=== PATIENT | male | born 1950 | race Caucasian/White ===

== ENCOUNTER 2017-11-13 20:47 | Inpatient (IN) | payer OTHER ==
[2017-11-13 21:12] VITALS: BMI 30.4
[2017-11-13] MEDS ORDERED: PANTOPRAZOLE 40 MG INJ IVP ONE (21:21)
[2017-11-13] MEDS: MORPHINE 4 MG/ML SYR IV PRN (21:49)
[2017-11-13] MEDS: SODIUM CHLORIDE 0.9% 10ML INJ IV PRN (21:49)
[2017-11-13] MEDS: NACHLORIDE 0.45% 1,000 ML IV SCH (21:58)
[2017-11-13] MEDS ORDERED: CIPROFLOXACIN 400mg IV 400 MG/200 ML BAG IV ONE (22:00)
[2017-11-14] MEDS: METRONIDAZOLE 500mg IVPB 500 MG/100 ML BAG IV SCH ×3 (00:25→16:56)
[2017-11-14] MEDS: MORPHINE 4 MG/ML SYR IV PRN ×2 (02:42→22:23)
[2017-11-14] MEDS: ONDANSETRON 4 MG/2 ML VIAL IV PRN ×2 (07:02→12:51)
[2017-11-14] MEDS: NACHLORIDE 0.45% 1,000 ML IV SCH ×4 (07:02→22:00)
[2017-11-14] MEDS ORDERED: ONDANSETRON 4 MG/2 ML VIAL ONE (07:03)
[2017-11-14 07:41] LABS: Urine Appearance CLEAR; Urine Bilirubin NEGATIVE (NEG); Urine Blood NEGATIVE (NEG); Urine Color YELLOW; Urine Glucose NEGATIVE (NEG); Urine Protein TRACE (NEG); Urine Specific Gravity >=1.030 (1.005-1.030); Urine Urobilinogen 0.2 mg/dL (0.2-1.0)
[2017-11-14 07:42] LABS: Urine Microscopic Reflex ORDER UMIC
[2017-11-14 07:45] LABS: Absolute Lymphocytes (CBC) 1.1 K/uL (0.7-4.9); Absolute Monocytes 0.8 K/uL (0.1-1.3); Absolute Neutrophil 7.9 K/uL (1.8-8.0); Basophils % 0.4 % (0-1.3); Eosinophils % 0.5 % (0-4.4); Hematocrit 35.7 % (39.6-49.0); Lymphocytes % 11.5 % (15.3-44.8); MCH 29.9 pg (27.0-35.0); MCV 85.8 fL (80-100); MPV 7.9 fL (7.6-11.3); Monocytes % 8.4 % (3.3-12.3); RBC Red Blood Cell Count 4.16 M/uL (4.33-5.43)
[2017-11-14 08:02] LABS: Urine Bacteria NONE SEEN /HPF (NONE SEEN); Urine Culture Reflex Order NOT NEEDED; Urine Mucus MOD /HPF (NONE SEEN); Urine RBC NONE SEEN /HPF (NONE SEEN)
[2017-11-14] MEDS: PANTOPRAZOLE 40 MG INJ IVP SCH (09:57)
[2017-11-14] MEDS: SODIUM CHLORIDE 0.9% 10ML INJ IV PRN (09:57)
[2017-11-14] MEDS: CIPROFLOXACIN 400mg IV 400 MG/200 ML BAG IV SCH ×2 (09:58→20:15)
--- NOTE | 2017-11-14 14:01 | CON ---
Date of Consultation: 11/14/2017 Brief History Of Present Illness: The patient is a 67-year-old male, known to me from previous histo ry. I saw him approximately 2 years ago in the hospital for emergent procedure. His history was sig nificant for prostate cancer status post radiation at [facility] when he developed abdominal pain. He came to the hospital and at that time Dr. Cleaning performed a colonoscopy and was concerned of perfor ation at that time. He developed an acute rigid abdomen and he had an emergency exploration with tra nsverse colostomy and mucous fistula creation at that time. He did well postoperatively and he ultim ately had a good function colostomy. I performed a colonoscopy through the proximal distal aspects o f his colon and after examining the entire colon found that he had no evidence of malignancy at that time. He simply had radiation effect at that time with inflammation. Ultimately, he had a colostomy takedown in 2016 and did well with that. He has been in his normal state of health, doing well, eat ing well up until last year in a part of 2017. He had several problems with respect to emotional iss ues. His , one of his children and his best friend . As such , he began heavy drinking greater than 12 pack per day since 2017 up until recently. During this cou rse, he developed occasional episodes of abdominal pain and decreased bowel function. Two weeks ago, he noted that with his increased drinking, he had firmer, harder stools that would only happen every 2 to 3 days, associated with bloating and nausea. This sort of came to ahead by his description whe n he went to [facility] ultimately with abdominal pain, bloating and some nausea with significant abdominal pain, which he has not experienced before. He had decreased bowel function as well by his description and not had a good bowel function for at least 2 to 3 days prior to this. He ultimately was transferred from [facility] after workup revealed a possible pseudo-obstruction by CT scan o f his colon with a tapering effect. As such he was transferred here and accepted by Dr. Prajapati. David haas, when I speak to the patient, he describes the above story and corroborates that he currently h as no abdominal pain. He did have 1 episode of nausea and vomiting yesterday after morphine injectio n, which he says he has experienced before. It was minimal amount of material vomited. He has had a bowel movement and is passing gas. He now states his abdominal pain is significantly better. His d istention is almost completely resolved and he is very hungry at this time. Past Medical History: Significant for prostate cancer. Also includes hypertension and GERD. Past Surgical History: He had transverse colostomy formation with diversion. He had multiple colono scopies as described and he had a colostomy takedown as described. Also includes robotic prostatecto my. Social History: He admits to heavy drinking of beer at this time, greater than 12 pack per day as de scribed above. He quit smoking however, but does have a significant smoking history. Denies any rec reational drug use. He is as described above and currently retired. Family History: Reviewed and noncontributory. Allergies: NO KNOWN DRUG ALLERGIES. Home Medications: Include lisinopril and Prilosec only. Physical Examination: Vital Signs: At the time of my examination, his BMI is 30.4. General: He is awake, alert, and oriented. Psychiatric: He is appropriate and conversive. Vital Signs: Blood pressure 145/83, pulse rate 76, respiratory rate 20, temperature 98.5. HEENT: Normocephalic. His sclerae are anicteric. His mucous membranes are moist. His oropharynx i s clear. Neck: Supple. No JVD. Chest: Normal expansion excursion. Cardiovascular: Regular rate and rhythm. Pulmonary: Clear to auscultation bilaterally. Abdomen: Soft, nontender, nondistended. Well-healed surgical scars are evident. No hernias appreci ated. Extremities: No clubbing, cyanosis, or edema. Laboratory Data: He had a laboratory exam here which revealed a white blood count 9.9, hemoglobin 12 .4, hematocrit 35.7, platelet count is 305, neutrophils 79%. He had a urinalysis performed as well w hich was essentially negative. He had a CT scan performed of the abdomen and pelvis without contrast at [facility], which was officially read as large volume of mixed stool and gas-distended colon with gradual tapering to normal caliber in the distal sigmoid. The bowel gas pattern is most consist ent with chronic pseudo-obstruction given the lack of clear transition. There was a small sliding hi atal hernia with mild esophageal mucosal enhancement, nonspecific, can be seen with reflux or abscess and normal appendix was identified. There were no transition points noted as well. His BNP was per formed yesterday at [facility] showed sodium 140, potassium 4.6, chloride 105, carbon dioxide 23, BUN 14. His glucose is 92, creatinine 1.1, calcium 8.9. His total bilirubin is 0.7. His ALK 79, A LT is 12, AST 40, lipase is 186. PTT was 29, INR 1.0, PT 13.7. Assessment And Plan: This is a 67-year-old male, who comes in with likely pseudo-obstruction of the colon, possibly contributed to by his heavy alcohol use as of late and poor nutrition. 1.I recommend IV fluid hydration. 2.Electrolyte management. 3.Alcohol cessation discussed and dietary modification discussed. 4.We will start clear liquid diet today and reexamine. 5.Serial abdominal exams. 6.The patient will need outpatient colonoscopy once again after this episode resolves. 7.Continue medical management per Dr. Prajapati. Thank you for this interesting consult. CITLALLI/ISIDRO Voice ID: [id number] Report ID: [id number]
[2017-11-14] MEDS: MAGNES/ALUMIN/SIMET 30ML UCUP PO PRN (15:37)
[2017-11-15] MEDS: METRONIDAZOLE 500mg IVPB 500 MG/100 ML BAG IV SCH ×3 (00:51→17:23)
[2017-11-15 04:16] LABS: Absolute Lymphocytes (CBC) 1.5 K/uL (0.7-4.9); Absolute Neutrophil 7.8 K/uL (1.8-8.0); Basophils % 0.5 % (0-1.3); Eosinophils % 1.2 % (0-4.4); Hematocrit 33.9 % (39.6-49.0); Lymphocytes % 14.1 % (15.3-44.8); MCH 30.3 pg (27.0-35.0); MCV 86.9 fL (80-100); MPV 7.9 fL (7.6-11.3); Monocytes % 9.7 % (3.3-12.3)
[2017-11-15 04:22] LABS: Magnesium 2.4 mg/dL (1.8-2.4); Phosphorus 2.5 mg/dL (2.5-4.9); Potassium 3.9 mmol/L (3.5-5.1)
[2017-11-15] MEDS: NACHLORIDE 0.45% 1,000 ML IV SCH ×3 (05:26→19:57)
[2017-11-15] MEDS: MAGNES/ALUMIN/SIMET 30ML UCUP PO PRN ×2 (09:01→21:10)
[2017-11-15] MEDS: ONDANSETRON 4 MG/2 ML VIAL IV PRN ×2 (09:02→21:10)
[2017-11-15] MEDS: SODIUM CHLORIDE 0.9% 10ML INJ IV PRN (09:05)
[2017-11-15] MEDS: PANTOPRAZOLE 40 MG INJ IVP SCH (09:05)
[2017-11-15] MEDS: LISINOPRIL 10 MG TAB PO SCH (09:13)
[2017-11-15] MEDS ORDERED: BISACODYL 10 MG RECTAL SUPP PR PRN (09:32)
--- NOTE | 2017-11-15 09:44 | P.PN ---
Subjective Date of Service: 11/15/17 Subjective: Improving (patient states he feels better, passing gas, having 3 BMs ) Physical Examination - Vital Signs Temperature: 98.3 F Blood Pressure: 150/83 Pulse: 76 Respirations: 18 Pulse Ox (%): 95 - Physical Exam General: Alert, In no apparent distress, Cooperative Gastrointestinal: Soft and benign, No ascites, No tenderness, No masses, No rebound, No guarding - Studies Laboratory Data (last 24 hrs) 11/15/17 03:43: Sodium 139, Potassium 3.9, BUN 11, Creatinine 0.90, Glucose 102 , Phosphorus 2.5, Magnesium 2.4 11/15/17 03:43: WBC 10.5, Hgb 11.8 L, Hct 33.9 L, Plt Count 277 Assessment And Plan - Current Problems (Diagnosis) (1) Colonic pseudoobstruction Onset Date: 11/14/17 Current Visit: Yes Status: Acute Plan: Patient continues to improve - having bowel movements - pain is almost completely resolved - only soreness remains - still has mild distention, but improved - dulcolax, full liquid diet
[2017-11-15] MEDS: CIPROFLOXACIN 400mg IV 400 MG/200 ML BAG IV SCH ×2 (10:15→20:00)
[2017-11-15] MEDS ORDERED: MAGNESIUM CITRATE 300 ML BOT PO ONE (13:00)
[2017-11-15] MEDS: MORPHINE 4 MG/ML SYR IV PRN ×2 (16:30→23:05)
--- NOTE | 2017-11-15 20:21 | HP ---
Date of Admission: 11/14/2017 Chief Complaint: Abdominal distention. History Of Present Illness: A 67-year-old male was brought to [facility] with abdominal pain and distention. He had a workup done including CAT scan. He was found to have distention of t he bowels including colon with a possibility of bowel obstruction. The patient is transferred to [facility]. The patient denied any history of vomiting. However, he was having small amount of loose stools. The patient now claims that he has seen Dr. Scott for this reason, and he was given probiotics. Past Medical History: The patient has history of hypotension. He had surgery for pseudo-colonic obs truction by Dr. Ashley. Family History: Positive for hypertension and cancer. Past Surgical History: Includes history of colostomy, prostate surgery for prostate cancer, colectom y and reversal of colostomy. Review of Systems: The patient denied any fever, chills, rigors. Physical Examination: General: Reveals 67-year-old male, in [id number] pain. Vital Signs: Normal. HEENT: No icterus. Neck: Supple. JVD negative. Chest: Clear. Heart: Regular. Abdomen: Diffusely distended with tympanic note. No palpable mass. Extremities: No edema. Laboratory Data: CBC normal. CAT scan as per the ER physician showed distention of the bowel, parti cularly colon, without a transition point. Assessment: 1.Rule out intermittent obstruction. 2.Hypertension. 3.Status post colectomy, colostomy, and reversal of colostomy. Plan: The patient has been seen by Dr. Ashley. He does not think the patient has any bowel obstruc tion. However, since the patient tells me that he has seen Dr. Scott, a consultation will be done a s he has seen for the same problem recently. IGNACIO/ISIDRO Voice ID: [id number]
[2017-11-16] MEDS: METRONIDAZOLE 500mg IVPB 500 MG/100 ML BAG IV SCH ×2 (00:16→10:08)
[2017-11-16] MEDS: MAGNES/ALUMIN/SIMET 30ML UCUP PO PRN (02:21)
[2017-11-16] MEDS: ONDANSETRON 4 MG/2 ML VIAL IV PRN (02:29)
[2017-11-16] MEDS: NACHLORIDE 0.45% 1,000 ML IV SCH (06:30)
--- NOTE | 2017-11-16 08:23 | RAD REPORT ---
EXAM DESCRIPTION: RAD - Abdomen 1 View (KUB) - 11/16/2017 6:49 am CLINICAL HISTORY: Abdomen pain. FINDINGS: Portions of the colon are upper limits normal caliber. Wall of the left colon appears mild ly thickened which may indicate inflammation. Air is present within nondilated small bowel in a nonspecific fashion. Surgical clips are present within the pelvis
--- NOTE | 2017-11-16 08:50 | P.PN ---
Subjective Date of Service: 11/16/17 Subjective: Improving (Patient states he feels much better, had 3 large BMs with gas. Very hungry, all pain gone, distention almost completely resolved.) Physical Examination - Vital Signs Temperature: 97.7 F Blood Pressure: 140/83 Pulse: 67 Respirations: 18 Pulse Ox (%): 95 - Physical Exam General: Alert, In no apparent distress, Cooperative HEENT: Mucous membr. moist/pink Gastrointestinal: Soft and benign (minimal distention, slight tympany consistent with gas), No ascites, No tenderness, No masses, No rebound, No guarding Assessment And Plan - Current Problems (Diagnosis) (1) Colonic pseudoobstruction Onset Date: 11/14/17 Current Visit: Yes Status: Acute Plan: Patient continues to improve - having bowel movements and passing gas - pain is resolved - still has mild distention, but improved - dulcolax, low residue diet
[2017-11-16] MEDS: CIPROFLOXACIN 400mg IV 400 MG/200 ML BAG IV SCH (10:08)
[2017-11-16] MEDS: LISINOPRIL 10 MG TAB PO SCH (10:09)
[2017-11-16] MEDS: PANTOPRAZOLE 40 MG INJ IVP SCH (10:09)
[2017-11-16] MEDS: SODIUM CHLORIDE 0.9% 10ML INJ IV PRN (10:11)
[2017-11-16 10:59] VITALS: O2SAT 96
[2017-11-16 12:26] VITALS: TEMP 99
[2017-11-16 13:02] VITALS: BP 104/59
== END 2017-11-16 13:27 | disposition home or self-care (01) | DRG 390 ==
LOC: 4TH 20:47
PROVIDERS: ADMIT Internal Medicine; ATTEND Internal Medicine
DX: K56.699 Other intestinal obstruction unspecified as to partial versus complete obstruction (principal); Z85.46 Personal history of malignant neoplasm of prostate; I10 Essential (primary) hypertension; K21.9 Gastro-esophageal reflux disease without esophagitis; K44.9 Diaphragmatic hernia without obstruction or gangrene; Z87.891 Personal history of nicotine dependence
CPT/HCPCS: 36415; 74018; 80048; 81003; 81015; 83735; 84100; 85025; C9113; J0744; J2405

== ENCOUNTER 2017-11-20 11:21 | Inpatient (IN) | payer OTHER ==
[2017-11-20] MEDS ORDERED: ONDANSETRON 4 MG/2 ML VIAL ONE (11:42)
[2017-11-20] MEDS ORDERED: MORPHINE 4 MG/ML SYR ONE (11:42)
[2017-11-20 12:10] LABS: Absolute Lymphocytes (CBC) 1.2 K/uL (0.7-4.9); Absolute Monocytes 1.1 K/uL (0.1-1.3); Absolute Neutrophil 11.6 K/uL (1.8-8.0); Basophils % 0.5 % (0-1.3); Eosinophils % 0.6 % (0-4.4); Hematocrit 44.6 % (39.6-49.0); Lymphocytes % 8.8 % (15.3-44.8); MCH 29.5 pg (27.0-35.0); MCV 87.3 fL (80-100); MPV 7.8 fL (7.6-11.3); Monocytes % 7.5 % (3.3-12.3); RBC Red Blood Cell Count 5.11 M/uL (4.33-5.43)
[2017-11-20 12:13] LABS: Protime INR 1.17
[2017-11-20 12:28] LABS: ALT/SGPT 33 U/L (12-78); AST/SGOT 25 U/L (15-37); Alkaline Phosphatase 74 U/L (45-117); BUN Blood Urea Nitrogen 10 mg/dL (7-18); Bicarbonate 29 mmol/L (21-32); Bilirubin Direct 0.2 mg/dL (0-0.2); Bilirubin Total 0.7 mg/dL (0.2-1.0); CKMB Creatine Kinase MB 1.5 ng/mL (0.3-3.6); Creatine Phosphokinase 102 U/L (39-308); Glucose Level 110 mg/dL (74-106); Lipase 277 U/L (73-393); Potassium 3.7 mmol/L (3.5-5.1); Protein, Total 8.7 g/dL (6.4-8.2); Sodium Level 136 mmol/L (136-145); Troponin (Emerg Dept Use Only) < 0.02 ng/mL (0.0-0.045)
[2017-11-20 12:28] LABS: Arterial Blood Carboxyhemoglob 0.9 % (0-1.5); Blood Gas Oxyhemoglobin 89.6 % (94-97); Blood O2 Saturation 91.1 % (92-98.5)
[2017-11-20] MEDS ORDERED: PANTOPRAZOLE 40 MG INJ ONE (12:35)
[2017-11-20] MEDS ORDERED: CEFTRIAXONE/SWI 1gm 1 GM/10 ML SYR ONE (12:35)
[2017-11-20] MEDS ORDERED: NA CHLORIDE 0.9% 500 ML ONE (12:54)
[2017-11-20] MEDS ORDERED: CEFEPIME 1 GM/100 ML BAG IV ONE (12:55)
[2017-11-20] MEDS ORDERED: PANTOPRAZOLE INJ 80 MG in NA CHLORIDE 0.9% 250 ML IV SCH (13:00)
[2017-11-20] MEDS ORDERED: PROMETHAZINE 25 MG/ML VIAL ONE (13:09)
--- NOTE | 2017-11-20 13:26 | RAD REPORT ---
EXAM DESCRIPTION: RAD - Chest Single View - 11/20/2017 12:41 pm CLINICAL HISTORY: DYSPNEA Chest pain. COMPARISON: Chest Single View dated 10/28/2017; Chest Single View dated 05/19/2017; Chest Single View dated 02/05/2017; Chest Single View dated 02/04/2017Abdomen 1 View (KUB) dated 11/16/2017; Chest Pa A nd Lat (2 Views) dated 08/27/2015; Chest Single View dated 07/06/2015; Chest Single View dated 6 FINDINGS: Portable technique limits examination quality. Linear opacities in left lung base noted, likely atelectasis. The heart is normal in size. No displac ed fractures. IMPRESSION: Left lung base atelectasis.
--- NOTE | 2017-11-20 13:44 | RAD REPORT ---
EXAM DESCRIPTION: CTAbdomen Pelvis W Contrast - 11/20/2017 1:24 pm CLINICAL HISTORY: Abdominal pain. ABD PAIN COMPARISON: Abdomen Pelvis W Contrast dated 08/27/2015; Abdomen Pelvis W Contrast dated 07/04/2015 ; Abdomen 1 View (KUB) dated 11/16/2017 TECHNIQUE: Biphasic CT imaging of the abdomen and pelvis was performed with 100 ml non-ionic IV cont rast. All CT scans are performed using dose optimization technique as appropriate and may include automated exposure control or mA/KV adjustment according to patient size. FINDINGS: The inferior lung romo are mildly emphysematous but clear.Small hiatal hernia is seen wi th distention of the stomach. The liver demonstrates no focal mass or biliary dilatation. The spleen, pancreas, adrenal glands and kidneys are within normal limits. Small cyst is present in the inferior posterior left kidney. Marked distention of the colon is present as well as the ileum. Trace free fluid is seen particularly along the right pericolic gutter. There is the regular thickening of 7 cm length of the sigmoid colo n in the pelvis seen. The lumen of the colon is quite narrowed. There is mild surrounding inflammator y changes. This area of the sigmoid colon is likely the cause of the significant proximal colonic ob struction. The appendix is not identified as a discrete structure, however, no secondary findings of appendicitis are identified. No evidence of significant lymphadenopathy. Aortic atherosclerosis. No free air or abscess is present. Moderate lumbosacral degenerative changes. IMPRESSION: A large bowel obstruction is present caused by a 7 cm segment of the sigmoid colon which is quite thickened and narrowed. Etiologies for this finding would include diverticulitis or maligna ncy. Consider colonoscopy followup assessment.
[2017-11-20 13:55] LABS: Bilirubin Direct 0.2 mg/dL (0-0.2); C-Reactive Protein 5.53 mg/L (<3.00); Magnesium 2.5 mg/dL (1.8-2.4)
[2017-11-20] MEDS ORDERED: VANCOMYCIN 1.5 GM in NA CHLORIDE 0.9% 500 ML IVPB SCH (14:00)
--- NOTE | 2017-11-20 14:18 | ER ---
Nurse's Notes [facility] Name: Ben Ceballos Age: 67 yrs Sex: Male : 1950 Arrival Date: 11/20/2017 Time: 11:22 Bed 2 Private MD: Diagnosis: Other intestinal obstruction;Diverticular disease of intestine Presentation: 11/20 11:22 Presenting complaint: EMS states: Pt was dc on with pseudo-blockage. C/o jl7 worseing abd pain and distention, Pt vomited on arrival. Transition of care: patient was not received from another setting of care. Onset of symptoms was November 07, 2017. Risk Assessment: Do you want to hurt yourself or someone else? Patient reports no desire to harm self or others. Initial Sepsis Screen: Does the patient meet any 2 criteria? No. Patient's initial sepsis screen is negative. Does the patient have a suspected source of infection? No. Patient's initial sepsis screen is negative. Care prior to arrival: None. 11:22 Method Of Arrival: EMS: [facility] jl7 11:22 Acuity: XIN 3 jl7 Triage Assessment: 11:24 General: Appears uncomfortable, ill, Behavior is cooperative. Pain: Complains of pain jl7 in right lower quadrant and left lower quadrant Pain currently is 8 out of 10 on a pain scale. Neuro: Level of Consciousness is awake, alert, obeys commands, Oriented to person, place, time, situation. Cardiovascular: Patient's skin is warm and dry. Respiratory: Airway is patent Respiratory effort is even, unlabored, Respiratory pattern is regular, symmetrical. GI: Abdomen is round distended, Pt is actively vomiting Abdomen is tender to palpation in left upper quadrant and left lower quadrant. Derm: Skin is dry, Skin is pale, Skin temperature is warm. Historical: - Allergies: 11:24 No Known Allergies; jl7 - Immunization history:: Adult Immunizations up to date. - Social history:: Smoking status: Patient/guardian denies using tobacco, Patient/guardian denies using alcohol, street drugs, The patient lives with family. - Ebola Screening: : No symptoms or risks identified at this time. - Family history:: not pertinent. Screenin:30 Abuse screen: Denies threats or abuse. Denies injuries from another. Nutritional jl7 screening: No deficits noted. Tuberculosis screening: No symptoms or risk factors identified. Fall Risk IV access (20 points). Total Maharaj Fall Scale indicates No Risk (0-24 pts). Assessment: 11:30 Reassessment: See triage assessment. jl7 13:30 Reassessment: Pt reports "I can't lay down for the CT, I feel like I'm going to vomit jl7 everywhere." Provider notified, see [facility] for orders. 15:00 Reassessment: No changes from previously documented assessment. Patient and/or family jl7 updated on plan of care and expected duration. Pain level reassessed. Patient is alert, oriented x 3, equal unlabored respirations, skin warm/dry/pink. 16:00 Reassessment: Patient and/or family updated on plan of care and expected duration. Pain jl7 level reassessed. Patient is alert, oriented x 3, equal unlabored respirations, skin warm/dry/pink. 17:00 Reassessment: Patient appears in no apparent distress at this time. Patient and/or jl7 family updated on plan of care and expected duration. Pain level reassessed. Patient is alert, oriented x 3, equal unlabored respirations, skin warm/dry/pink. Vital Signs: 11:24 BP 121 / 94; Pulse 97; Resp 18; Temp 98.1(O); Pulse Ox 98% on R/A; Weight 86.18 kg (R); jl7 Pain 8/10; 13:00 BP 130 / 88; Pulse 95; Resp 16 S; Pulse Ox 98% on R/A; jl7 14:00 BP 128 / 89; Pulse 94; Resp 18 S; Pulse Ox 99% on R/A; jl7 15:15 BP 126 / 87; Pulse 90; Resp 16 S; Pulse Ox 100% on R/A; jl7 16:45 BP 122 / 88; Pulse 87; Resp 16 S; Pulse Ox 100% on R/A; jl7 ED Course: 11:22 Patient arrived in ED. jl7 11:24 Triage completed. jl7 11:24 Arm band placed on right wrist. jl7 11:30 Patient has correct armband on for positive identification. Placed in gown. Bed in low jl7 position. Call light in reach. Side rails up X 1. clinical molecular geneticist on. Pulse ox on. NIBP on. 11:30 Warm blanket given. jl7 11:36 Alzahri, Mohammad, MD is Attending Physician. ma2 11:40 Initial lab(s) drawn, by ny, sent to lab. Inserted saline lock: 20 gauge in right jb1 antecubital area, using aseptic technique. Blood collected. 11:53 IV discontinued, intact, bleeding controlled. jb1 12:04 Helio Anna RN is Primary Nurse. jl7 12:42 Chest Single View XRAY In Process Unspecified. EDMS 13:24 CT Abd/Pelvis - W/Contrast In Process Unspecified. EDMS 13:45 NGT: inserted 12 Fr. via left nare. verified placement of air over stomach, verified jl7 return of gastric contents, to intermittent suction. Returned gastric contents. Patient tolerated well. 14:15 Isreal Prajapati MD is Hospitalizing Provider. ma2 14:50 Inserted saline lock: 18 gauge in left forearm, using aseptic technique. ,using aseptic jl7 technique. Inserted by RADHA Arriaga via US. 15:57 Inserted saline lock: 22 gauge in right forearm, using aseptic technique. iw 16:14 No provider procedures requiring assistance completed. jl7 17:30 Patient admitted, IV remains in place. intact, No redness/swelling at site. jl7 Administered Medications: 11:52 Drug: Zofran 4 mg Route: IVP; Site: left wrist; jl7 12:06 Follow up: Response: No adverse reaction jl7 11:55 Drug: morphine 4 mg Route: IVP; Site: left wrist; jl7 12:06 Follow up: Response: No adverse reaction; Pain is decreased jl7 12:35 Drug: Pantoprazole 80 mg Route: IVP; Site: left wrist; jl7 15:24 Follow up: Response: No adverse reaction jl7 12:43 Drug: Rocephin 1 grams Route: IV; Rate: calculated rate; Site: left wrist; jl7 12:46 Follow up: Response: No adverse reaction; IV Status: Completed infusion jl7 13:15 Drug: Phenergan 25 mg Route: IVP; Site: left wrist; jl7 15:19 Follow up: Response: No adverse reaction; Nausea is decreased jl7 13:30 Drug: NS 0.9% 500 ml Route: IV; Rate: 1 bolus; Site: left wrist; jl7 14:40 Follow up: IV Status: Completed infusion jl7 14:00 Drug: Pantoprazole 8 mg/hr Route: IV; Rate: 25 ml/hr; Site: left wrist; jl7 14:58 Follow up: IV Pause: 11/20/2017 14:58; IV Pause Reason: Limited IV access/Medication jl7 interaction 16:00 Follow up: IV Status: Infusion continued jl7 17:30 Follow up: IV Status: Infusion continued upon admission jl7 14:58 Drug: Cefepime 1 grams Route: IVPB; Rate: 200 ml/hr; Infused Over: 30 mins; Site: left jl7 forearm; 15:30 Follow up: Response: No adverse reaction; IV Status: Completed infusion jl7 17:17 Drug: vancoMYCIN 1.5 grams Route: IVPB; Rate: calculated rate; Site: right forearm; sg 17:30 Follow up: IV Status: Infusion continued upon admission jl7 17:18 Drug: Flagyl 500 mg Volume: 100 ml; Route: IVPB; Rate: 200 ml/hr; Infused Over: 30 sg mins; Site: left antecubital; 17:48 Follow up: Response: No adverse reaction; IV Status: Completed infusion jl7 Outcome: 14:18 Decision to Hospitalize by Provider. ma2 16:43 Admitted to Med/surg accompanied by tech, via stretcher, room 229, with chart, Report jl7 called to RADHA Chaidez 16:43 Condition: stable 16:43 Instructed on the need for admit, safety practices, Demonstrated understanding of instructions. 17:26 Patient left the ED. iw Signatures: Dispatcher [employer] EDMS Meek Guidry Steven, RN RN Maya Mora RN RN Helio Anna RN RN jl7 Inga Mayorga MD MD ma2 Corrections: (The following items were deleted from the chart) 11:53 11:53 Inserted saline lock: 20 gauge in right antecubital area, using aseptic dave technique. Blood collected. dave 11:53 11:53 Initial lab(s) drawn, by me, sent to lab. dave acosta
--- NOTE | 2017-11-20 14:19 | EDPHYS ---
Physician Documentation [facility] Name: Ben Ceballos Age: 67 yrs Sex: Male : 1950 Arrival Date: 11/20/2017 Time: 11:22 Bed 2 Private MD: ED Physician Inga Mayorga HPI: 11/20 13:15 This 67 yrs old Male presents to ER via EMS with complaints of Abd Pain > 50 ma2 y/o. 13:15 The patient presents with abdominal pain. Onset: The symptoms/episode began/occurred ma2 gradually, 1 day(s) ago. The symptoms do not radiate. Associated signs and symptoms: Pertinent positives: nausea and vomiting, vomiting blood, Pertinent negatives: blood in stools, dysuria, headache, vomiting. Modifying factors: The symptoms are alleviated by nothing, the symptoms are aggravated by. Severity of pain: At its worst the pain was severe in the emergency department the pain is unchanged. The patient has experienced a previous episode. Historical: - Allergies: 11:24 No Known Allergies; jl7 - Immunization history:: Adult Immunizations up to date. - Social history:: Smoking status: Patient/guardian denies using tobacco, Patient/guardian denies using alcohol, street drugs, The patient lives with family. - Ebola Screening: : No symptoms or risks identified at this time. - Family history:: not pertinent. ROS: 13:15 Constitutional: Negative for fever, chills, and weight loss, ENT: Negative for injury, ma2 pain, and discharge, Cardiovascular: Negative for chest pain, palpitations, and edema, Respiratory: Negative for shortness of breath, cough, wheezing, and pleuritic chest pain, MS/Extremity: Negative for injury and deformity, Neuro: Negative for headache, weakness, numbness, tingling, and seizure. 13:15 Abdomen/GI: Positive for abdominal pain, nausea and vomiting, vomiting, abdominal cramps, abdominal distension, hematemesis, Negative for rectal pain. 13:15 All other systems are negative. Exam: 13:15 Head/Face: Normocephalic, atraumatic. Chest/axilla: Normal chest wall appearance and ma2 motion. Nontender with no deformity. No lesions are appreciated. Cardiovascular: Regular rate and rhythm with a normal S1 and S2. No gallops, murmurs, or rubs. Normal PMI, no JVD. No pulse deficits. Respiratory: Lungs have equal breath sounds bilaterally, clear to auscultation and percussion. No rales, rhonchi or wheezes noted. No increased work of breathing, no retractions or nasal flaring. MS/ Extremity: Pulses equal, no cyanosis. Neurovascular intact. Full, normal range of motion. Neuro: Awake and alert, GCS 15, oriented to person, place, time, and situation. Cranial nerves II-XII grossly intact. Motor strength 5/5 in all extremities. Sensory grossly intact. Cerebellar exam normal. Normal gait. 13:15 Constitutional: The patient appears in obvious distress, moderately distressed, in obvious pain. 13:15 Abdomen/GI: Inspection: distension, Bowel sounds: normal, Palpation: soft, nontender, no appreciated organomegaly, Hernia: not appreciated. Vital Signs: 11:24 BP 121 / 94; Pulse 97; Resp 18; Temp 98.1(O); Pulse Ox 98% on R/A; Weight 86.18 kg (R); jl7 Pain 8/10; 13:00 BP 130 / 88; Pulse 95; Resp 16 S; Pulse Ox 98% on R/A; jl7 14:00 BP 128 / 89; Pulse 94; Resp 18 S; Pulse Ox 99% on R/A; jl7 15:15 BP 126 / 87; Pulse 90; Resp 16 S; Pulse Ox 100% on R/A; jl7 16:45 BP 122 / 88; Pulse 87; Resp 16 S; Pulse Ox 100% on R/A; jl7 MDM: 11:36 Patient medically screened. ma2 13:15 Differential diagnosis: cholecystitis, Cholelithiasis, diverticulitis, gastritis, ma2 non-specific abd pain, pancreatitis. 14:13 Data reviewed: vital signs, nurses notes, diagnostic data from outside facility, lab ma2 test result(s), radiologic studies. Counseling: I had a detailed discussion with the patient and/or guardian regarding: the historical points, exam findings, and any diagnostic results supporting the discharge/admit diagnosis, the presence of at least one elevated blood pressure reading (>120/80) during this emergency department visit, the need for further work-up and treatment in the hospital. Response to treatment: the patient's symptoms have markedly improved after treatment. ED course: patient has LBO d/t possibel diverticulitis, with hematemesis, HB and VS stable, discussed and accepted by Dr. Jane and accepted by Dr. Sandoval . 11/20 11:51 Order name: Sed Rate; Complete Time: 13:15 ma2 11/20 11:51 Order name: ABG; Complete Time: 13:15 ma2 11/20 11:51 Order name: Urine Culture 2 11/20 11:51 Order name: Basic Metabolic Panel; Complete Time: 13:15 ma2 11/20 11:51 Order name: Blood Culture Adult (2) ma2 11/20 11:51 Order name: CBC with Diff; Complete Time: 13:15 ma2 11/20 11:51 Order name: Ckmb; Complete Time: 13:15 ma2 11/20 11:51 Order name: CPK; Complete Time: 13:15 ma2 11/20 11:51 Order name: Lactate; Complete Time: 13:15 ma2 11/20 11:51 Order name: LFT's; Complete Time: 13:15 ma2 11/20 11:51 Order name: Lipase; Complete Time: 13:15 ma11/20 11:51 Order name: Procalcitonin; Complete Time: 13:15 ma2 11/20 11:51 Order name: Protime (+inr); Complete Time: 13:15 ma2 11/20 11:51 Order name: Ptt, Activated; Complete Time: 13:15 ma2 11/20 11:51 Order name: Troponin (emerg Dept Use Only); Complete Time: 13:15 2 11/20 11:51 Order name: Urine Microscopic Only 2 11/20 11:51 Order name: Chest Single View XRAY; Complete Time: 13:43 ma2 11/20 12:05 Order name: CDIFF 11/20 12:05 Order name: C-Reactive Protein; Complete Time: 14:03 2 11/20 12:05 Order name: Bilirubin, Direct; Complete Time: 14:03 ma2 11/20 12:05 Order name: D-Dimer; Complete Time: 13:43 ma2 11/20 12:05 Order name: Magnesium; Complete Time: 14:03 2 11/20 12:05 Order name: NT PRO-BNP; Complete Time: 14:03 ma2 11/20 12:05 Order name: CT Abd/Pelvis - W/Contrast; Complete Time: 14:03 ma2 11/20 12:05 Order name: Type And Screen; Complete Time: 14:03 ma2 11/20 14:29 Order name: Basic Metabolic Panel EDMS 11/20 14:29 Order name: Basic Metabolic Panel EDMS 11/20 14:29 Order name: CBC with Automated Diff EDMS 11/20 14:29 Order name: CBC with Automated Diff EDMS 11/20 14:38 Order name: Urine Dipstick--Ancillary (enter results) bd 11/20 11:51 Order name: Accucheck; Complete Time: 11:52 ma2 11/20 11:51 Order name: Cardiac monitoring; Complete Time: 11:52 ma2 11/20 11:51 Order name: EKG - Nurse/Tech; Complete Time: 12:56 ma2 11/20 11:51 Order name: IV Saline Lock - Large Bore; Complete Time: 12:26 ma2 11/20 11:51 Order name: Labs collected and sent; Complete Time: 11:52 ma2 11/20 11:51 Order name: O2 Per Protocol; Complete Time: 11:52 ma2 11/20 11:51 Order name: O2 Sat Monitoring; Complete Time: 11:52 ma2 11/20 12:05 Order name: EKG; Complete Time: 12:06 ma2 11/20 12:05 Order name: IV Saline Lock; Complete Time: 14:28 ma2 11/20 14:19 Order name: Chest Single View XRAY ma2 11/20 14:29 Order name: CONS Pharmacy Consult EDOH 11/20 15:41 Order name: RAD EDMS Administered Medications: 11:52 Drug: Zofran 4 mg Route: IVP; Site: left wrist; jl7 12:06 Follow up: Response: No adverse reaction jl7 11:55 Drug: morphine 4 mg Route: IVP; Site: left wrist; jl7 12:06 Follow up: Response: No adverse reaction; Pain is decreased jl7 12:35 Drug: Pantoprazole 80 mg Route: IVP; Site: left wrist; jl7 15:24 Follow up: Response: No adverse reaction jl7 12:43 Drug: Rocephin 1 grams Route: IV; Rate: calculated rate; Site: left wrist; jl7 12:46 Follow up: Response: No adverse reaction; IV Status: Completed infusion jl7 13:15 Drug: Phenergan 25 mg Route: IVP; Site: left wrist; jl7 15:19 Follow up: Response: No adverse reaction; Nausea is decreased jl7 13:30 Drug: NS 0.9% 500 ml Route: IV; Rate: 1 bolus; Site: left wrist; jl7 14:40 Follow up: IV Status: Completed infusion jl7 14:00 Drug: Pantoprazole 8 mg/hr Route: IV; Rate: 25 ml/hr; Site: left wrist; jl7 14:58 Follow up: IV Pause: 11/20/2017 14:58; IV Pause Reason: Limited IV access/Medication jl7 interaction 16:00 Follow up: IV Status: Infusion continued jl7 17:30 Follow up: IV Status: Infusion continued upon admission jl7 14:58 Drug: Cefepime 1 grams Route: IVPB; Rate: 200 ml/hr; Infused Over: 30 mins; Site: left jl7 forearm; 15:30 Follow up: Response: No adverse reaction; IV Status: Completed infusion 7 17:17 Drug: vancoMYCIN 1.5 grams Route: IVPB; Rate: calculated rate; Site: right forearm; sg 17:30 Follow up: IV Status: Infusion continued upon admission jl7 17:18 Drug: Flagyl 500 mg Volume: 100 ml; Route: IVPB; Rate: 200 ml/hr; Infused Over: 30 sg mins; Site: left antecubital; 17:48 Follow up: Response: No adverse reaction; IV Status: Completed infusion 7 Disposition: 11/20/17 14:18 Hospitalization ordered by Isreal Prajapati for Inpatient Admission. Preliminary diagnosis are Other intestinal obstruction, Diverticular disease of intestine. - Bed requested for Telemetry/MedSurg (Inpatient). - Status is Inpatient Admission. iw - Condition is Guarded. - Problem is new. - Symptoms have improved. UTI on Admission? No Signatures: Dispatcher [employer] Eula Jamil RN RN dw Gay, Steven, RN RN sg Williams, Irene, Helio Alva RN, RN RN jl7 Inga Mayorga MD MD ma2 Corrections: (The following items were deleted from the chart) 15:07 14:18 Hospitalization Ordered by Isreal Prajapati MD for Inpatient Admission. Preliminary dw diagnosis is Other intestinal obstruction; Diverticular disease of intestine. Bed requested for Telemetry/MedSurg (Inpatient). Status is Inpatient Admission. Condition is Guarded. Problem is new. Symptoms have improved. UTI on Admission? No. ma2 17:26 15:07 11/20/2017 14:18 Hospitalization Ordered by Isreal Prajapati MD for Inpatient iw Admission. Preliminary diagnosis is Other intestinal obstruction; Diverticular disease of intestine. Bed requested for Telemetry/MedSurg (Inpatient). Status is Inpatient Admission. Condition is Guarded. Problem is new. Symptoms have improved. UTI on Admission? No. dw
--- NOTE | 2017-11-20 15:41 | RAD REPORT ---
EXAM DESCRIPTION: RAD - Chest Single View - 11/20/2017 3:08 pm CLINICAL HISTORY: ngt Chest pain. COMPARISON: Chest Single View dated 11/20/2017; Abdomen 1 View (KUB) dated 11/16/2017; Chest Pa And Lat (2 Views) dated 08/27/2015; Chest Single View dated 07/06/2015 FINDINGS: Portable technique limits examination quality. Tip of the enteric tube is in the stomach.
[2017-11-20 16:06] LABS: Urine Bacteria <20 /HPF (NONE SEEN); Urine RBC <5 /HPF (NONE SEEN)
[2017-11-20 16:07] LABS: Urine Culture Reflex Order NOT NEEDED
[2017-11-20] MEDS ORDERED: METRONIDAZOLE 500mg IVPB 500 MG/100 ML BAG IV ONE (16:10)
[2017-11-20] MEDS: D5 0.45 NS 1,000 ML IV SCH (18:18)
--- NOTE | 2017-11-20 20:02 | CON ---
Date of Consultation: 11/20/2017 Brief History Of Present Illness: The patient is a 67-year-old male, known to me from previous histo ry and admissions to the hospital. I saw him approximately 2 years ago in the hospital for an emerge ncy procedure. He has a history of prostate cancer status post radiation at [facility]. He was und ergoing a colonoscopy with Dr. Cleaning and there was some concern for perforation as he developed a rigi d abdomen and significant abdominal pain, and emergency exploration transverse colostomy with mucous fistula was created at that time. He did well ultimately and had an exam of the entire colon and had no evidence of malignancy. At that time, he had some inflammatory changes with focal cryptitis. Ho wever, he ultimately had a colostomy reversal in 2015 and did well with that. He had been in his the [facility] prior to his last admission which was on 11/14/2017, at which point, he also came in with similar complaints of nausea, vomiting, abdominal pain, bloating, and decreased bowel functi on. His recently as well as 1 of his children, his best friend and he began heavy d rinking greater than 12 pack per day since 2016. During this course, he developed occasional episode s of abdominal pain, decreased bowel function, and he had increased nausea. He was admitted on 11/14. Ultimately, he was n.p.o. and had resumption of his bowel function and was tolerating diet, a nd we had planned to do a colonoscopy during that admission, however, he ultimately opened up signifi cantly and decided he had no pain and his distention completely resolved and as such, we decided to p erform an outpatient colonoscopy. The patient was discharged and now he returns with similar symptom s of abdominal pain, nausea, vomiting, bloating, beginning approximately 2 days ago. He continues to have bowel function, had 2 bowel movements today, but has the resumption of the abdominal distention , pain and nausea, vomiting. Past Medical History: Significant for prostate cancer, hypertension, and GERD. Past Surgical History: He had a transverse colostomy formation with diversion, multiple colonoscopie s as described, and he had a colostomy takedown as described. He also had a robotic prostatectomy in the past. Social History: He admits to heavy drinking beer greater than 12 packs per day as describe. He quit smoking, but does have a significant smoking history. Denies any recreational drug use. He is wido wed and as described above has the social situation described. Family History: Reviewed, noncontributory. Allergies: NO KNOWN DRUG ALLERGIES. Home Medications: Include lisinopril and Prilosec. Physical Examination: General: At the time of my examination, he is awake and alert. He is oriented. Psychiatric: He is appropriate and conversive. HEENT: He is normocephalic. His sclerae are anicteric. His mucous membranes are somewhat dry. His oropharynx is clear. Neck: Supple with no JVD. He has an NG tube in place with brownish effluent of significant volume. Chest: Normal expansion excursion. Cardiovascular: Regular rate and rhythm. Pulmonary: Clear to auscultation bilaterally. Abdomen: Soft with global distention, global tenderness to palpation. He had some tympany to the le ft side. There is no focal peritonitis. Extremities: No clubbing, cyanosis, or edema. Skin: Warm and dry. Laboratory Data: His laboratory exam revealed a white blood cell count of 14.0, hemoglobin 15.1 over hematocrit of 44.6, platelet count is 490, neutrophils 82.6%. His lactate is 1.5. His LFTs show an AST 25, ALT 33, alkaline phosphatase is 74, T bilirubin 0.7. His lipase is 277. Procalcitonin less than 0.05. PT 13.8, INR 1.17. His sodium 136, potassium 3.7, chloride 97, carbon dioxide 29, gluco se is 110, BUN 10, creatinine 1.1, calcium 9.4. His D-dimer was 2311. C-reactive protein 5.53. In addition, he had a coags drawn. His troponin was less than 0.02. His PTT was 30.5. His INR was 1.1 7. ProBNP was 100, magnesium was 2.5. Again, CT scan of the abdomen pelvis was officially read as m arked distention of the colon is present as well as the ileum. Trace free fluid is seen particularly along the right pericolic gutter. There is irregular thickening of 7 cm length of sigmoid colon in the pelvis. The lumen of the colon is quite narrow. There was mild surrounding inflammatory changes . This area of the sigmoid colon is likely the cause of significant proximal colonic obstruction. T he appendix is not identified as a discrete structure. However, no secondary findings of appendiciti s are noted. No evidence of significant lymphadenopathy. The official impression is a large bowel o bstruction is present caused by 7 cm segment of sigmoid colon, which is quite thick and narrowed. Et iologies for this would include diverticulitis or malignancy. Assessment And Plan: This is a 67-year-old male known to me with the above stated history, who prese nts with a recurrent large bowel obstruction due to multiple possible etiologies inflammatory/infecti ous versus possible malignancy. 1.IV fluid hydration. 2.Continue NG tube decompression. 3.Serial abdominal exams. 4.Antibiotic coverage. 5.The patient will be bowel prepped, and I recommend a colonoscopy prior to discharge to better defi ne the etiology of this colonic obstruction. Continue current medical management per Dr. Prajapati. I w ill follow along with you. Thank you for this interesting consult. CITLALLI/ISIDRO Voice ID: [id number] Report ID: [id number]
[2017-11-20] MEDS: MORPHINE 4 MG/ML SYR IV PRN (22:01)
[2017-11-20 22:06] LABS: Urine Blood TRACE (NEG); Urine Glucose NEGATIVE (NEG); Urine Protein NEGATIVE (NEG); Urine Specific Gravity 1.015 (1.005-1.030)
[2017-11-21] MEDS: D5 0.45 NS 1,000 ML IV SCH ×3 (01:00→20:51)
[2017-11-21] MEDS: MORPHINE 4 MG/ML SYR IV PRN (04:45)
[2017-11-21 05:46] LABS: Potassium 4.1 mmol/L (3.5-5.1)
[2017-11-21 05:49] LABS: Absolute Monocytes 1.1 K/uL (0.1-1.3); Absolute Neutrophil 10.3 K/uL (1.8-8.0); Basophils % 0.6 % (0-1.3); Eosinophils % 0.6 % (0-4.4); Hematocrit 36.6 % (39.6-49.0); Lymphocytes % 8.2 % (15.3-44.8); MCH 29.9 pg (27.0-35.0); MCV 87.4 fL (80-100); MPV 7.8 fL (7.6-11.3); Monocytes % 8.5 % (3.3-12.3); RBC Red Blood Cell Count 4.19 M/uL (4.33-5.43)
[2017-11-21] MEDS ORDERED: INFLUENZA VACCINE (for 3y+) 0.5 ML DOSE IMVAC ONE (09:00)
[2017-11-21] MEDS: METRONIDAZOLE 500mg IVPB 500 MG/100 ML BAG IV SCH ×3 (09:08→23:59)
[2017-11-21] MEDS: CIPROFLOXACIN 400mg IV 400 MG/200 ML BAG IV SCH ×2 (09:08→20:50)
--- NOTE | 2017-11-21 10:09 | EKG ---
Test Date: 2017-11-20 Test Time: 12:06:06 [employer] Operator: CALEB MEASUREMENT RESULTS: Intervals: Rate: 89 SC: 148 QRSD: 90 QT: 380 QTc: 462 [place]: P: 33 SC: 148 QRS: 77 T: 22 INTERPRETIVE STATEMENTS: Normal sinus rhythm Low voltage QRS Septal infarct, age undetermined Possible Lateral infarct, age undetermined Abnormal ECG Compared to ECG 09/05/2015 08:41:21 Low QRS voltage now present Myocardial infarct finding now present Fusion complex(es) no longer present Left-axis deviation no longer present Electronically Signed On 11-21-17 10:08:30 CDT by Faheem Whalen
[2017-11-21] MEDS ORDERED: SODIUM CHLORIDE 0.9% 10ML INJ IV PRN (10:42)
[2017-11-21] MEDS ORDERED: METOCLOPRAMIDE 5 MG TAB PO ONE (18:36)
[2017-11-21] MEDS ORDERED: MAGNESIUM CITRATE 300 ML BOT PO SCH (19:00)
[2017-11-21] MEDS ORDERED: GOLYTELY 4000 ML PO SCH (21:00)
[2017-11-21] MEDS ORDERED: FLEET ENEMA ADULT PR ONE (21:00)
[2017-11-21] MEDS: PANTOPRAZOLE 40 MG INJ IVP SCH (21:00)
--- NOTE | 2017-11-21 23:08 | HP ---
Date of Admission: 11/20/2017 Chief Complaint: Abdominal pain and distention. History Of Present Illness: A 67-year-old male who was in the hospital last week for bowel obstructi on. However, he improved on conservative management of n.p.o. IV fluids. Actually, the patient was seen 2 days prior to admission in the office, at which time he was tolerating the diet well and had n o abdominal symptoms. However, he started having distention feeling and was brought to the emergency room. CAT scan showed evidence of large bowel obstruction. The patient is admitted. Past Medical History: Positive for colostomy, reversal of colostomy, and hypertension. Family History: Hypertension. Personal History: Currently nonsmoker. History of recent alcohol has been documented in the chart. Allergies: NO KNOWN ALLERGIES. Review of Systems: No chest pain or shortness of breath. Physical Examination: General: Revealed a 67-year-old male, not in extreme pain. Vital Signs: Afebrile. HEENT: Negative. Neck: Supple. JVD negative. Chest: Clear. Heart: Regular. Abdomen: Diffuse distention. Bowel sounds present. Extremities: No edema. Laboratory Data: White count at admission 14,000. Chem profile at admission; BUN 15, creatinine 1.1 , magnesium 2.5. Assessment: 1.Recurrent bowel obstruction. 2.Hypertension. Plan: N.p.o., NG suction, IV fluids, GI consultation. IGNACIO/ISIDRO Voice ID: [id number]
[2017-11-22] MEDS: D5 0.45 NS 1,000 ML IV SCH ×3 (05:47→23:59)
[2017-11-22 06:49] LABS: Magnesium 2.3 mg/dL (1.8-2.4); Phosphorus 2.6 mg/dL (2.5-4.9)
[2017-11-22] MEDS: CIPROFLOXACIN 400mg IV 400 MG/200 ML BAG IV SCH ×2 (08:06→20:06)
[2017-11-22] MEDS: METRONIDAZOLE 500mg IVPB 500 MG/100 ML BAG IV SCH ×3 (08:06→23:58)
[2017-11-22] MEDS: PANTOPRAZOLE 40 MG INJ IVP SCH ×2 (08:06→20:06)
[2017-11-22] MEDS ORDERED: Ringers Lactate 1,000 ML IV ONE (11:29)
[2017-11-22] MEDS ORDERED: PROPOFOL 200 MG/20 ML VIAL IV ONE (12:53)
--- NOTE | 2017-11-22 13:32 | ENDO RPT ---
[address], [address] COLONOSCOPY PROCEDURE REPORT EXAM DATE: 11/22/2017 PATIENT NAME: Ben Ceballos MR #: [id number] BIRTHDATE: 1950 ATTENDING: Jere Scott Dr STATUS: inpatient - 7 LIGHT CLEANER: Suellen Walker and Gabbi Wagner RN INDICATIONS: The patient is a 67 yr old Male here for a colonoscopy due to abnormal CT of abdomen, abdominal pain, and change in bowel habits PROCEDURE PERFORMED: Colonoscopy with biopsy MEDICATIONS: Per Anesthesia. ESTIMATED BLOOD LOSS: None CONSENT: The patient understands the risks and benefits of the procedure and understands that these risks include, but are not limited to: sedation, allergic reaction, infection, perforation and/or bleeding. Alternative means of evaluation and treatment include, among others: physical exam, x-rays, and/or surgical intervention. The patient elects to proceed with this endoscopic procedure. DESCRIPTION OF PROCEDURE: During intra-op preparation period all mechanical medical equipment was checked for proper function. Hand hygiene and appropriate measures for infection prevention was taken. Procedure, possible complications, alternatives including, but not limited to possibility of bleeding, perforation, tear, infection, sepsis, need for surgery, need for blood transfusion, were explained to the patient. After the risks, benefits and alternatives of the procedure were thoroughly explained, Informed consent was verified, confirmed and timeout was successfully executed by the treatment team. The patient was placed in the left lateral position. A digital rectal exam was performed and revealed external hemorrhoids and A digital rectal exam was performed and revealed several skin tags. After appropriate level of anesthesia, the scope was passed. The EC-[id number] ([id number]) endoscope was introduced through the anus and advanced to the ascending colon. The quality of the prep was fair. The instrument was then slowly withdrawn as the colon was fully examined. Scope withdrawal time was 8 minutes. COLON FINDINGS: Mild diverticulosis was noted in the sigmoid colon. No bleeding was noted from the diverticulosis. There was a short stricture in the rectosigmoid colon. Moderate sized internal and external hemorrhoids were found. Retroflexed views revealed small hemorrhoids. The scope was then completely withdrawn from the patient and the procedure terminated. ADVERSE EVENTS: There were no complications. IMPRESSIONS: 1. Mild diverticulosis in the sigmoid colon with patchy inflammation / erythema from distal descending to sigmoid colon, s/p biopsies -> probable diverticulits 2. Short stricture ( 4 cm) at the rectosigmoid junction 20 cm from the anal biopsies. Probably due to acute bout of diverticulitis 3. Moderate sized internal and external hemorrhoids RECOMMENDATIONS: 1. await biopsy results 2. antibiotics 3. bowel rest with subsequent slow advancement of diet RECALL: Return in 2 month(s) for Colonoscopy. Jere Scott Dr eSigned: Jere Scott Dr 11/22/2017 1:31 PM cc: Kristian Gloria M.D. CPT CODES: ICD9 CODES: PATIENT NAME: Ben Ceballos MR#: [id number]
[2017-11-22 13:59] VITALS: BMI 30.7
[2017-11-22] MEDS: MORPHINE 4 MG/ML SYR IV PRN (21:19)
[2017-11-22 22:10] VITALS: O2SAT 98
--- NOTE | 2017-11-22 23:04 | PN ---
Subjective: The patient is postoperative endoscopy: Colonoscopy findings include narrow segment of sigmoid colon which probably is causing intermittent obstruction. I explained this to the patient. The patient will be given a diet and see how he responds. IGNACIO/ISIDRO Voice ID: [id number] Report ID: [id number]
[2017-11-23] MEDS: MORPHINE 4 MG/ML SYR IV PRN (02:46)
[2017-11-23 05:50] LABS: Magnesium 2.3 mg/dL (1.8-2.4); Phosphorus 2.8 mg/dL (2.5-4.9)
[2017-11-23] MEDS: PANTOPRAZOLE 40 MG INJ IVP SCH (07:48)
[2017-11-23] MEDS: METRONIDAZOLE 500mg IVPB 500 MG/100 ML BAG IV SCH (07:48)
[2017-11-23] MEDS: CIPROFLOXACIN 400mg IV 400 MG/200 ML BAG IV SCH (07:49)
[2017-11-23 08:51] VITALS: BP 149/80; TEMP 97.5
--- NOTE | 2017-11-23 10:20 | P.PN ---
Subjective Date of Service: 11/23/17 Subjective: Improving (Patient is pain free, tolerating diet, ambulatory, return of normal bowel function) Physical Examination - Vital Signs Temperature: 97.5 F Blood Pressure: 149/80 Pulse: 68 Respirations: 16 Pulse Ox (%): 96 - Physical Exam General: In no apparent distress, Cooperative HEENT: Mucous membr. moist/pink Gastrointestinal: Soft and benign, No ascites, No tenderness, No masses, No rebound, No guarding Assessment And Plan - Current Problems (Diagnosis) (1) Diverticulitis Onset Date: 11/21/17 Current Visit: Yes Status: Acute Plan: - low residue diet - 14 days levaquin and flagyl - follow up in 2 weeks
== END 2017-11-23 12:30 | disposition home or self-care (01) | DRG 390 ==
LOC: ER 11:21 → ERHOLD 14:20 → 2ND 16:43
PROVIDERS: ADMIT Internal Medicine; ATTEND Internal Medicine
PROC: 0D9670Z Drainage of Stomach with Drainage Device, Via Natural or Artificial Opening (ICD-10-PCS; 2017-11-20)
PROC: 0DBN8ZX Excision of Sigmoid Colon, Via Natural or Artificial Opening Endoscopic, Diagnostic (ICD-10-PCS; principal; 2017-11-22 13:45)
DX: K56.699 Other intestinal obstruction unspecified as to partial versus complete obstruction (principal); K57.30 Diverticulosis of large intestine without perforation or abscess without bleeding; K64.8 Other hemorrhoids; K64.4 Residual hemorrhoidal skin tags; Z85.46 Personal history of malignant neoplasm of prostate; I10 Essential (primary) hypertension; K21.9 Gastro-esophageal reflux disease without esophagitis; Z87.891 Personal history of nicotine dependence
CPT/HCPCS: 36415; 71045; 74177; 80048; 80076; 81003; 81015; 82248; 82550; 82553; 82805; 82962; 83605; 83690; 83735; 83880; 84100; 84145; 84484; 85025; 85379; 85610; 85652; 85730; 86140; 86850; 86900; 86901; 87040; 87086; 87088; 87493; 88305; 93005; 99285; C9113; G0008; J0692; J0696; J0744; J2405; J2550; Q2035; Q9967

== ENCOUNTER 2018-05-16 13:46 | Emergency (ER) | payer OTHER ==
[2018-05-16 14:53] LABS: Absolute Lymphocytes (CBC) 1.2 K/uL (0.7-4.9); Absolute Monocytes 0.8 K/uL (0.1-1.3); Absolute Neutrophil 8.2 K/uL (1.8-8.0); Basophils % 0.9 % (0-1.3); Eosinophils % 3.9 % (0-4.4); Lymphocytes % 10.9 % (15.3-44.8); Monocytes % 7.6 % (3.3-12.3); RBC Red Blood Cell Count 5.05 M/uL (4.33-5.43)
--- NOTE | 2018-05-16 15:08 | RAD REPORT ---
EXAM DESCRIPTION: RAD - Abdomen 1 View (KUB) - 05/16/2018 2:57 pm CLINICAL HISTORY: diarrhea, nausea, hx of bowel obstruction Pain COMPARISON: Abdomen 1 View (KUB) dated 11/16/2017 FINDINGS: The bowel gas pattern is non-obstructive. No evidence of free air or pneumatosis. No suspi cious calcifications. No significant bony findings. Prostatectomy clips. IMPRESSION: Negative examination.
[2018-05-16 15:09] LABS: BUN Blood Urea Nitrogen 17 mg/dL (7-18); Bicarbonate 31 mmol/L (21-32); Glucose Level 123 mg/dL (74-106); Potassium 3.8 mmol/L (3.5-5.1); Sodium Level 141 mmol/L (136-145); Troponin (Emerg Dept Use Only) < 0.02 ng/mL (0.0-0.045)
--- NOTE | 2018-05-16 15:44 | ER ---
Nurse's Notes [facility] Name: Ben Ceballos Age: 67 yrs Sex: Male : 1950 Arrival Date: 05/16/2018 Time: 13:47 Bed 26 Private MD: Isreal Prajapati R Diagnosis: Diarrhea, unspecified;Possible medication adverse reaction Presentation: 05/16 14:05 Presenting complaint: Patient states: pt got really dizzy, sweaty, SOB, nauseated, felt iw like he was going to pass out, had a few episodes of diarrhea, about 30 min [facility], hx of diverticulitis, pt states he took amoxil-clav prior to getting sick. Pt denies chest pain. Transition of care: patient was not received from another setting of care. Onset of symptoms was May 16, 2018. Risk Assessment: Do you want to hurt yourself or someone else? Patient reports no desire to harm self or others. Initial Sepsis Screen: Does the patient meet any 2 criteria? No. Patient's initial sepsis screen is negative. Does the patient have a suspected source of infection? No. Patient's initial sepsis screen is negative. Care prior to arrival: None. 14:05 Method Of Arrival: Wheelchair iw 14:05 Acuity: XIN 3 iw Historical: - Allergies: 14:35 No Known Allergies; iw - Home Meds: 14:13 lisinopril 10 mg oral tab once daily [Active]; iw - Ebola Screening: : Patient negative for fever greater than or equal to 101.5 degrees Fahrenheit, and additional compatible Ebola Virus Disease symptoms Patient denies exposure to infectious person Patient denies travel to an Ebola-affected area in the 21 days before illness onset No symptoms or risks identified at this time. - Family history:: not pertinent. - Hospitalizations: : No recent hospitalization is reported. Screenin:35 Abuse screen: Denies threats or abuse. Denies injuries from another. Nutritional iw screening: No deficits noted. Tuberculosis screening: No symptoms or risk factors identified. 16:10 Fall Risk None identified. aj1 Assessment: 14:10 General: Appears in no apparent distress. Behavior is calm, cooperative. Pain: iw Complains of pain in right lower quadrant and left lower quadrant. Neuro: Level of Consciousness is awake, alert, obeys commands, Moves all extremities. Cardiovascular: Patient's skin is warm and dry. Respiratory: Respiratory effort is even, unlabored, Respiratory pattern is regular. GI: Abdomen is non-distended, GI: Reports lower abdominal pain, diarrhea, nausea. Derm: Skin is intact, is healthy with good turgor. Musculoskeletal: Range of motion: intact in all extremities. 15:04 Reassessment: Patient appears in no apparent distress at this time. No changes from aj1 previously documented assessment. Patient and/or family updated on plan of care and expected duration. Pain level reassessed. Patient is alert, oriented x 3, equal unlabored respirations, skin warm/dry/pink. 16:09 Reassessment: Patient appears in no apparent distress at this time. No changes from aj1 previously documented assessment. Patient and/or family updated on plan of care and expected duration. Pain level reassessed. Patient is alert, oriented x 3, equal unlabored respirations, skin warm/dry/pink. Vital Signs: 14:10 BP 139 / 86; Pulse 93; Resp 18 S; Pulse Ox 98% on R/A; iw 15:04 BP 138 / 90; Pulse 85; Resp 18; Pulse Ox 98% on R/A; aj1 15:50 BP 147 / 94; Pulse 91; Resp 18; Pulse Ox 99% on R/A; tm3 ED Course: 13:47 Patient arrived in ED. as 13:47 Isreal Prajapati MD is Private Physician. as 14:01 Bill Farooq MD is Attending Physician. rn 14:04 EKG done, by instructional support technician. reviewed by Bill Farooq MD. sm3 14:05 Arm band placed on. iw 14:10 Triage completed. iw 14:23 Renuka Mcghee, RADHA is Primary Nurse. aj1 14:38 Inserted saline lock: 20 gauge in left antecubital area, using aseptic technique. tm3 14:38 Initial lab(s) drawn, by hi, sent to lab. tm3 14:53 Patient moved to radiology via wheelchair. sw 14:54 XRAY KUB In Process Unspecified. EDMS 16:09 No provider procedures requiring assistance completed. IV discontinued, intact, aj1 bleeding controlled, No redness/swelling at site. Pressure dressing applied. 16:10 Patient has correct armband on for positive identification. aj1 Administered Medications: No medications were administered Outcome: 15:44 Discharge ordered by . rn 16:10 Discharged to home ambulatory. aj1 16:10 Condition: good 16:10 Discharge instructions given to patient, Instructed on discharge instructions, follow up and referral plans. medication usage, Demonstrated understanding of instructions, follow-up care, medications, Prescriptions given X 2. 16:11 Patient left the ED. aj1 Signatures: Dispatcher [employer] EDRenuka Rodriguez RN RN aj1 Janak Berkowitz3 Alicia Zhao Irene, RN RN iw Nieto, Roman, MD MD rn Warren, Shannon sw Montes, [facility]
--- NOTE | 2018-05-16 15:44 | EDPHYS ---
Physician Documentation [facility] Name: Ben Ceballos Age: 67 yrs Sex: Male : 1950 Arrival Date: 05/16/2018 Time: 13:47 Bed 26 Private MD: Isreal Prajapati R ED Physician Bill Farooq HPI: 05/16 14:10 This 67 yrs old Male presents to ER via Unassigned with complaints of rn Dizziness, Diarrhea, Nausea. 14:10 Pt reports had diarrhea "splatter" yesterday, today decided to take augmentin since he rn had been given it in the past for diverticulitis, shortly after felt dizzy, lightheaded, nauseated, and had more diarrhea. Does not feel like previous obstructions, no abd pain. No vomiting. . Onset: The symptoms/episode began/occurred just prior to arrival. Severity of symptoms: At their worst the symptoms were mild in the emergency department the symptoms have improved. The patient has experienced a previous episode. Reports has had abnormal reaction to augmentin in past with abd pain and vomiting. He feels much better now. No chest pain. . Historical: - Allergies: 14:35 No Known Allergies; iw - Home Meds: 14:13 lisinopril 10 mg oral tab once daily [Active]; iw - Ebola Screening: : Patient negative for fever greater than or equal to 101.5 degrees Fahrenheit, and additional compatible Ebola Virus Disease symptoms Patient denies exposure to infectious person Patient denies travel to an Ebola-affected area in the 21 days before illness onset No symptoms or risks identified at this time. - Family history:: not pertinent. - Hospitalizations: : No recent hospitalization is reported. ROS: 15:33 Constitutional: Negative for fever, chills, and weight loss, Neck: Negative for injury, rn pain, and swelling, Cardiovascular: Negative for chest pain, palpitations, and edema, Respiratory: Negative for shortness of breath, cough, wheezing, and pleuritic chest pain, Abdomen/GI: + nausea and diarrhea MS/Extremity: Negative for injury and deformity, Skin: Negative for injury, rash, and discoloration, Neuro: Negative for headache, weakness, numbness, tingling, and seizure. Exam: 15:33 Constitutional: This is a well developed, well nourished patient who is awake, alert, rn and in no acute distress. Laying in bed, legs crossed, appears comfortable Head/Face: Normocephalic, atraumatic. Eyes: Pupils equal round and reactive to light, extra-ocular motions intact. Lids and lashes normal. Conjunctiva and sclera are non-icteric and not injected. Cornea within normal limits. Periorbital areas with no swelling, redness, or edema. ENT: MMM Respiratory: No increased work of breathing, no retractions or nasal flaring. Abdomen/GI: soft, non-tender, non-distended Skin: Warm, dry MS/ Extremity: Pulses equal, no cyanosis. Neurovascular intact. Full, normal range of motion. Equal circumference. Neuro: Awake and alert, GCS 15, oriented to person, place, time, and situation. Cranial nerves II-XII grossly intact. Motor strength 5/5 in all extremities. Sensory grossly intact. Cerebellar exam normal. Vital Signs: 14:10 BP 139 / 86; Pulse 93; Resp 18 S; Pulse Ox 98% on R/A; iw 15:04 BP 138 / 90; Pulse 85; Resp 18; Pulse Ox 98% on R/A; aj1 15:50 BP 147 / 94; Pulse 91; Resp 18; Pulse Ox 99% on R/A; tm3 MDM: 14:01 Patient medically screened. rn 15:33 Differential Diagnosis medication reaction, diarrhea, viral syndrome. Data reviewed: rn vital signs, nurses notes, lab test result(s), EKG, radiologic studies, plain films, and as a result, I will discharge patient. Counseling: I had a detailed discussion with the patient and/or guardian regarding: the historical points, exam findings, and any diagnostic results supporting the discharge/admit diagnosis, lab results, radiology results, the need for outpatient follow up, to return to the emergency department if symptoms worsen or persist or if there are any questions or concerns that arise at home. Response to treatment: the patient's symptoms have markedly improved after treatment, the patient's symptoms have resolved after treatment, the patient's condition has returned to base line. 15:41 ED course: Pt pain free and asymptomatic, upon discharging patient reports had rn red/brown stool, possible colitis/diverticulitis given diarrhea and now possible blood, normal cbc and kub neg for obstruction, will put on abx for possible early diverticulitis/colitis/infectious diarrhea and urged to f/u with GI and pcp. Return precautions given and understood. No peritoneal signs, actually, no abd tenderness at all. . 05/16 14:09 Order name: CBC with Diff; Complete Time: 15:24 rn 05/16 14:09 Order name: Basic Metabolic Panel; Complete Time: 15:24 rn 05/16 14:09 Order name: IV Start; Complete Time: 15:05 rn 05/16 14:09 Order name: EKG; Complete Time: 14:10 rn 05/16 14:09 Order name: XRAY KUB; Complete Time: 15:24 rn 05/16 14:10 Order name: Troponin (emerg Dept Use Only); Complete Time: 15:24 rn 05/16 14:09 Order name: EKG - Nurse/Tech; Complete Time: 14:13 rn Administered Medications: No medications were administered Disposition: 05/16/18 15:44 Discharged to Home. Impression: Diarrhea, unspecified, Possible medication adverse reaction. - Condition is Stable. - Discharge Instructions: Diarrhea, Adult, Diverticulitis. - Prescriptions for Flagyl 500 mg Oral Tablet - take 1 tablet by ORAL route every 8 hours for 10 days; 30 tablet. Cipro 500 mg Oral Tablet - take 1 tablet by ORAL route every 12 hours for 10 days; 20 tablet. - Medication Reconciliation Form, Thank You Letter, Antibiotic Education, Prescription Opioid Use form. - Follow up: Private Physician; When: As needed; Reason: Recheck today's complaints, Re-evaluation by your physician. - Problem is new. - Symptoms have improved. Signatures: Dispatcher [employer] Renuka Rodriguez RN RN aj1 Maya Mora RN RN Bill Sethi MD MD glove turner and former automatic: (The following items were deleted from the chart) 16:11 15:44 05/16/2018 15:44 Discharged to Home. Impression: Diarrhea, unspecified; Possible aj1 medication adverse reaction. Condition is Stable. Forms are Medication Reconciliation Form, Thank You Letter, Antibiotic Education, Prescription Opioid Use. Follow up: Private Physician; When: As needed; Reason: Recheck today's complaints, Re-evaluation by your physician. Problem is new. Symptoms have improved. rn
[2018-05-16 16:18] VITALS: BP 147/94; O2SAT 99
--- NOTE | 2018-05-16 16:27 | EKG ---
Test Date: 2018-05-16 Test Time: 13:59:10 Air Analyst: JAZMÍN MEASUREMENT RESULTS: Intervals: Rate: 89 MI: 154 QRSD: 96 QT: 370 QTc: 450 [place]: P: 61 MI: 154 QRS: -84 T: 54 INTERPRETIVE STATEMENTS: Normal sinus rhythm Low voltage QRS Incomplete right bundle branch block Left axis Possible anterior infarct, age undetermined Abnormal ECG Compared to ECG 11/20/2017 12:06:06 Incomplete right bundle-branch block now present Myocardial infarct finding still present Electronically Signed On 05-16-18 16:27:06 CDT by Faheem Whalen
== END 2018-05-16 16:11 | disposition home or self-care (01) ==
LOC: ER 13:46
DX: R19.7 Diarrhea, unspecified (principal); Z79.899 Other long term (current) drug therapy
CPT/HCPCS: 36415; 74018; 80048; 84484; 85025; 93005; 99284

== ENCOUNTER 2018-05-17 07:31 | Emergency (ER) | payer OTHER ==
[2018-05-17] MEDS ORDERED: NA CHLORIDE 0.9% 1,000 ML ONE (08:28)
[2018-05-17] MEDS ORDERED: FAMOTIDINE 20 MG/2 ML VIAL IV ONE (08:28)
[2018-05-17 08:35] LABS: Absolute Lymphocytes (CBC) 0.9 K/uL (0.7-4.9); Basophils % 0.2 % (0-1.3); Hematocrit 39.8 % (39.6-49.0); Lymphocytes % 5.7 % (15.3-44.8); MPV 8.1 fL (7.6-11.3); Monocytes % 6.6 % (3.3-12.3); RBC Red Blood Cell Count 4.61 M/uL (4.33-5.43)
[2018-05-17 08:55] LABS: Albumin 3.7 g/dL (3.4-5.0); Bilirubin Direct 0.2 mg/dL (0-0.2); Bilirubin Total 0.6 mg/dL (0.2-1.0); Potassium 3.6 mmol/L (3.5-5.1); Protein, Total 7.7 g/dL (6.4-8.2)
[2018-05-17] MEDS ORDERED: ONDANSETRON 4 MG/2 ML VIAL ONE (09:07)
[2018-05-17 09:10] LABS: Blood Morphology Comment NOT SEEN (NOT SEEN); Platelet Estimate ADEQ
--- NOTE | 2018-05-17 09:20 | RAD REPORT ---
EXAM DESCRIPTION: CT - Abdomen Pelvis W Contrast - 05/17/2018 9:05 am CLINICAL HISTORY: Abdominal pain/hematochezia COMPARISON: November 2017 TECHNIQUE: Computed axial tomography of the abdomen pelvis was obtained. 100 cc Isovue-300 was admin istered intravenously. Oral contrast was not requested which limits evaluation of bowel. All CT scans are performed using dose optimization technique as appropriate and may include automated exposure control or mA/KV adjustment according to patient size. FINDINGS: The liver, spleen, pancreas, adrenal and kidneys appear unremarkable. The wall of the descending and sigmoid colon is markedly thickened with stranding within the adjacent fat. Pneumatosis intestinalis is not seen. Free air is not visualized Postsurgical changes of a prostatectomy are noted. Small hiatal hernia. IMPRESSION: Marked left colitis
[2018-05-17] MEDS ORDERED: CIPROFLOXACIN HCL 500 MG TAB ONE (10:51)
[2018-05-17] MEDS ORDERED: metroNIDAZOLE 500 MG TABLET ONE (10:51)
--- NOTE | 2018-05-17 11:12 | ER ---
Nurse's Notes [facility] Name: Ben Ceballos Age: 67 yrs Sex: Male : 1950 Arrival Date: 05/17/2018 Time: 07:35 Bed 5 Private MD: Isreal Prajapati R Diagnosis: Left sided colitis;Hematochezia;Melena Presentation: 05/17 07:48 Presenting complaint: N/V/D and blood in stool x 2 days. Not tolerating fluids. hb Transition of care: patient was not received from another setting of care. Onset of symptoms was May 16, 2018. Risk Assessment: Do you want to hurt yourself or someone else? Patient reports no desire to harm self or others. Care prior to arrival: None. 07:48 Method Of Arrival: Ambulatory hb 07:48 Acuity: XIN 3 hb Triage Assessment: 07:50 General: Appears in no apparent distress. Behavior is calm, cooperative. Pain: Pain hb currently is 0 out of 10 on a pain scale. at worst was 3 out of 10 on a pain scale. EENT: No signs and/or symptoms were reported regarding the EENT system. Neuro: Level of Consciousness is awake, alert, obeys commands, Oriented to person, place, time. Cardiovascular: Heart tones S1 S2 present Capillary refill < 3 seconds Patient's skin is warm and dry. Respiratory: Airway is patent Respiratory effort is even, unlabored, Respiratory pattern is regular, symmetrical, Breath sounds are clear bilaterally. GI: Abdomen is non-distended, Bowel sounds present X 4 quads. Abd is soft and non tender X 4 quads. Reports lower abdominal pain, cramping, diarrhea, bloody stool, intolerance of fluids, nausea, vomiting. : No signs and/or symptoms were reported regarding the genitourinary system. Derm: Skin is intact, is healthy with good turgor, Skin is pink, warm \T\ dry. Musculoskeletal: No signs and/or symptoms reported regarding the musculoskeletal system. Historical: - Allergies: 07:51 No Known Allergies; hb - Home Meds: 07:51 lisinopril 10 mg Oral tab once daily [Active]; Omeprazole Oral once daily [Active]; hb - Immunization history:: Adult Immunizations up to date. - Social history:: Smoking status: Patient/guardian denies using tobacco. - Ebola Screening: : No symptoms or risks identified at this time. Screenin:28 Abuse screen: Denies threats or abuse. Denies injuries from another. Nutritional hb screening: No deficits noted. Tuberculosis screening: No symptoms or risk factors identified. Fall Risk None identified. Assessment: 07:55 General: SEE TRIAGE NOTE. hb 08:35 Reassessment: Patient appears in no apparent distress at this time. Patient and/or hb family updated on plan of care and expected duration. Pain level reassessed. Patient is alert, oriented x 3, equal unlabored respirations, skin warm/dry/pink. 08:56 Reassessment: PT to CT. hb 09:24 Reassessment: PT returned from CT. hb 09:45 Reassessment: Patient appears in no apparent distress at this time. Patient and/or hb family updated on plan of care and expected duration. Pain level reassessed. Patient is alert, oriented x 3, equal unlabored respirations, skin warm/dry/pink. 10:45 Reassessment: Patient appears in no apparent distress at this time. Patient and/or hb family updated on plan of care and expected duration. Pain level reassessed. Patient is alert, oriented x 3, equal unlabored respirations, skin warm/dry/pink. Vital Signs: 07:50 BP 158 / 101; Pulse 93; Resp 16; Temp 98.5; Pulse Ox 100% on R/A; Pain 0/10; hb 09:45 BP 150 / 91; Pulse 84; Resp 16; Pulse Ox 99% on R/A; hb 10:45 BP 144 / 83; Pulse 81; Resp 15; Pulse Ox 100% on R/A; Pain 1/10; hb ED Course: 07:35 Patient arrived in ED. mr 07:36 Isreal Prajapati MD is Private Physician. mr 07:49 Triage completed. hb 07:50 Arm band placed on. hb 07:53 Kenyon Augustin MD is Attending Physician. kdr 08:13 Makenna Hatch, RADHA is Primary Nurse. hb 08:24 Inserted saline lock: 20 gauge in left antecubital area, using aseptic technique. Blood hb collected. 08:28 Patient has correct armband on for positive identification. Placed in gown. Bed in low hb position. Call light in reach. Side rails up X 1. 09:[address] via wheelchair. [email or web address] 09:05 CT Abd/Pelvis - W/Contrast In Process Unspecified. EDMS 10:24 CT completed. Patient tolerated procedure well. Patient moved to CT via wheelchair. jg6 Patient moved back from CT. 11:06 Isreal Prajapati MD is Referral Physician. kdr 11:25 No provider procedures requiring assistance completed. Patient did not have IV access ss during this emergency room visit. Administered Medications: 08:25 Drug: NS 0.9% 1000 ml Route: IV; Rate: 1 bolus; Site: left antecubital; hb 09:45 Follow up: Response: No adverse reaction; IV Status: Completed infusion hb 08:25 Drug: Pepcid 20 mg Route: IVP; Site: left antecubital; hb 08:59 Follow up: Response: No adverse reaction hb 08:59 Drug: Zofran 4 mg Route: IVP; Site: right antecubital; hb 09:45 Follow up: Response: No adverse reaction; Nausea is decreased hb 10:43 Drug: Cipro 500 mg Route: PO; hb 11:26 Follow up: Response: No adverse reaction ss 10:43 Drug: Flagyl 500 mg Route: PO; hb 11:26 Follow up: Response: No adverse reaction ss Outcome: 11:10 Discharge ordered by . kdr 11:25 Discharged to home ambulatory. ss 11:25 Condition: good 11:25 Discharge instructions given to patient, Instructed on discharge instructions, follow up and referral plans. medication usage, Demonstrated understanding of instructions, follow-up care, medications, Prescriptions given X 2. 11:27 Patient left the ED. ss Signatures: Dispatcher [employer] EDMS Kenyon Augustin MD MD kdr Rivera, Mary mr Araceli Goldberg, RADHA RN Makenna Wayne, RADHA RN Ashleigh Cunningham [email or web address]
--- NOTE | 2018-05-17 11:12 | EDPHYS ---
Physician Documentation [facility] Name: Ben Ceballos Age: 67 yrs Sex: Male : 1950 Arrival Date: 05/17/2018 Time: 07:35 Bed 5 Private MD: Isreal Prajapati R ED Physician Kenyon Augustin HPI: 05/17 08:11 This 67 yrs old Male presents to ER via Ambulatory with complaints of Rectal kdr Bleeding. 08:11 The patient presents to the emergency department with bleeding from the rectum/anus, kdr that is mild. Onset: The symptoms/episode began/occurred yesterday. Context: the patient has no known special context relating to the rectal area complaint(s), The patient thinks he may have food poisoning. Modifying factors: The symptoms are alleviated by nothing, The symptoms are aggravated by bowel movement. Associate signs and symptoms: Pertinent positives: lower GI bleeding, vomiting, bile, Pertinent negatives: abdominal pain, constipation, diarrhea, dysuria, fever. The patient has experienced similar episodes in the past, a few times. The patient has not recently seen a physician. Historical: - Allergies: 07:51 No Known Allergies; hb - Home Meds: 07:51 lisinopril 10 mg Oral tab once daily [Active]; Omeprazole Oral once daily [Active]; hb - Immunization history:: Adult Immunizations up to date. - Social history:: Smoking status: Patient/guardian denies using tobacco. - Ebola Screening: : No symptoms or risks identified at this time. ROS: 08:11 Constitutional: Negative for fever, chills, and weight loss, Eyes: Negative for injury, kdr pain, redness, and discharge, ENT: Negative for injury, pain, and discharge, Neck: Negative for injury, pain, and swelling, Cardiovascular: Negative for chest pain, palpitations, and edema, Respiratory: Negative for shortness of breath, cough, wheezing, and pleuritic chest pain, Back: Negative for injury and pain, : Negative for injury, bleeding, discharge, and swelling, MS/Extremity: Negative for injury and deformity, Skin: Negative for injury, rash, and discoloration, Neuro: Negative for headache, weakness, numbness, tingling, and seizure activity. Psych: Negative for depression, anxiety, suicide ideation, homicidal ideation, and hallucinations, Allergy/Immunology: Negative for hives, rash, and allergies, Endocrine: Negative for neck swelling, polydipsia, polyuria, polyphagia, and marked weight changes, Hematologic/Lymphatic: Negative for swollen nodes, abnormal bleeding, and unusual bruising. 08:11 Abdomen/GI: Positive for nausea and vomiting, nausea, vomiting, and diarrhea, diarrhea, black/tarry stool, rectal bleeding. Exam: 08:11 Constitutional: This is a well developed, well nourished patient who is awake, alert, kdr and in no acute distress. Head/Face: Normocephalic, atraumatic. Eyes: Pupils equal round and reactive to light, extra-ocular motions intact. Lids and lashes normal. Conjunctiva and sclera are non-icteric and not injected. Cornea within normal limits. Periorbital areas with no swelling, redness, or edema. Neck: Trachea midline, no thyromegaly or masses palpated, and no cervical lymphadenopathy. Supple, full range of motion without nuchal rigidity, or vertebral point tenderness. No Meningismus. Chest/axilla: Normal chest wall appearance and motion. Nontender with no deformity. No lesions are appreciated. Cardiovascular: Regular rate and rhythm with a normal S1 and S2. No gallops, murmurs, or rubs. Normal PMI, no JVD. No pulse deficits. Respiratory: Lungs have equal breath sounds bilaterally, clear to auscultation and percussion. No rales, rhonchi or wheezes noted. No increased work of breathing, no retractions or nasal flaring. Back: No spinal tenderness. No costovertebral tenderness. Full range of motion. Skin: Warm, dry with normal turgor. Normal color with no rashes, no lesions, and no evidence of cellulitis. MS/ Extremity: Pulses equal, no cyanosis. Neurovascular intact. Full, normal range of motion. Neuro: Awake and alert, GCS 15, oriented to person, place, time, and situation. Cranial nerves II-XII grossly intact. Motor strength 5/5 in all extremities. Sensory grossly intact. Cerebellar exam normal. Normal gait. Psych: Awake, alert, with orientation to person, place and time. Behavior, mood, and affect are within normal limits. 08:11 Abdomen/GI: Inspection: abdomen appears normal, scar(s), are noted in the epigastric area, umbilical area and suprapubic area, Bowel sounds: active, Palpation: abdomen is soft and non-tender, soft, Rectal exam: Prostate: normal, rectal tone normal, Stool: guaiac positive. Vital Signs: 07:50 BP 158 / 101; Pulse 93; Resp 16; Temp 98.5; Pulse Ox 100% on R/A; Pain 0/10; hb 09:45 BP 150 / 91; Pulse 84; Resp 16; Pulse Ox 99% on R/A; hb 10:45 BP 144 / 83; Pulse 81; Resp 15; Pulse Ox 100% on R/A; Pain 1/10; hb MDM: 08:11 Data reviewed: vital signs, nurses notes, lab test result(s), radiologic studies. kdr Counseling: I had a detailed discussion with the patient and/or guardian regarding: the historical points, exam findings, and any diagnostic results supporting the discharge/admit diagnosis, lab results, radiology results. 11:10 Patient medically screened. kdr 05/17 08:10 Order name: Occult Blood--Ancillary bd 05/17 08:11 Order name: Basic Metabolic Panel; Complete Time: 09:10 kdr 05/17 08:11 Order name: CBC with Diff; Complete Time: 10:26 kdr 05/17 08:11 Order name: Creatinine for Radiology; Complete Time: 09: kdr 05/17 08:11 Order name: Hepatic Function; Complete Time: 09: kdr 05/17 08:11 Order name: Lipase; Complete Time: 09: kdr 05/17 08:11 Order name: IV Saline Lock; Complete Time: 08:28 kdr 05/17 08:11 Order name: CT Abd/Pelvis - W/Contrast; Complete Time: 10:26 kdr 05/17 09:10 Order name: Manual Differential; Complete Time: 10:26 EDMS 05/17 08:11 Order name: Labs collected and sent; Complete Time: 08:28 kdr 05/17 10:27 Order name: PO challenge; Complete Time: 10:44 kdr Administered Medications: 08:25 Drug: NS 0.9% 1000 ml Route: IV; Rate: 1 bolus; Site: left antecubital; hb 09:45 Follow up: Response: No adverse reaction; IV Status: Completed infusion hb 08:25 Drug: Pepcid 20 mg Route: IVP; Site: left antecubital; hb 08:59 Follow up: Response: No adverse reaction hb 08:59 Drug: Zofran 4 mg Route: IVP; Site: right antecubital; hb 09:45 Follow up: Response: No adverse reaction; Nausea is decreased hb 10:43 Drug: Cipro 500 mg Route: PO; hb 11:26 Follow up: Response: No adverse reaction ss 10:43 Drug: Flagyl 500 mg Route: PO; hb 11:26 Follow up: Response: No adverse reaction ss Disposition: 05/17/18 11:10 Discharged to Home. Impression: Left sided colitis, Hematochezia, Melena. - Condition is Stable. - Discharge Instructions: Gastrointestinal Bleeding, [id number], Colitis. - Prescriptions for Zofran 4 mg Oral Tablet - take 1 tablet by ORAL route every 4-6 hours As needed; 20 tablet. Tramadol 50 mg Oral Tablet - take 1 tablet by ORAL route every 8 hours as needed; 12 tablet. - Medication Reconciliation Form, Thank You Letter, Antibiotic Education form. - Follow up: Isreal Prajapati MD; When: 2 - 3 days; Reason: If symptoms return, Further diagnostic work-up, Recheck today's complaints, Continuance of care, Re-evaluation by your physician. - Problem is new. - Symptoms have improved. Signatures: Dispatcher [employer] EDMS Kenyon Augustin MD MD [facility] Araceli Goldberg RN RN Makenna Hatch RN RN Corrections: (The following items were deleted from the chart) 11:27 11:10 05/17/2018 11:10 Discharged to Home. Impression: Left sided colitis; ss Hematochezia; Melena. Condition is Stable. Forms are Medication Reconciliation Form, Thank You Letter, Antibiotic Education, Prescription Opioid Use. Follow up: Isreal Prajapati; When: 2 - 3 days; Reason: If symptoms return, Further diagnostic work-up, Recheck today's complaints, Continuance of care, Re-evaluation by your physician. Problem is new. Symptoms have improved. kdr
[2018-05-17 11:31] VITALS: TEMP 98.5
[2018-05-17 11:34] VITALS: BP 144/83; O2SAT 100
== END 2018-05-17 11:27 | disposition home or self-care (01) ==
LOC: ER 07:31
DX: K52.9 Noninfective gastroenteritis and colitis, unspecified (principal)
CPT/HCPCS: 85025; 80048; 36415; 80076; 82272; 83690; 74177; 99284; Q9967; J7030; J2405

== ENCOUNTER 2019-10-06 07:30 | Emergency (ER) | payer OTHER ==
[2019-10-06] MEDS ORDERED: HYDROCODONE/APAP 7.5/325 MG TAB ONE (07:57)
[2019-10-06] MEDS ORDERED: MORPHINE 4 MG/ML SYR ONE (08:05)
[2019-10-06] MEDS ORDERED: ONDANSETRON 4 MG/2 ML VIAL ONE (08:06)
[2019-10-06] MEDS ORDERED: propofoL 200 MG/20 ML VIAL IV ONE (08:46)
[2019-10-06] MEDS ORDERED: NA CHLORIDE 0.9% 1,000 ML ONE (08:46)
[2019-10-06] MEDS ORDERED: KETAMINE HCL 500 MG/5 ML VIAL ONE (09:23)
--- NOTE | 2019-10-06 09:51 | RAD REPORT ---
EXAM DESCRIPTION: RAD - Shoulder Left 2 View - 10/06/2019 8:06 am CLINICAL HISTORY: fall;Pain COMPARISON: No comparisons TECHNIQUE: Internal and external rotation views of the left shoulder were obtained. FINDINGS: Left humerus has been dislocated medial and slightly inferior to the bony glenoid. This is typical of an anterior dislocation. No fracture changes are identifiable. Mild AC joint degenerative changes are present. Inferiorly directed spur seen from the clavicle. No abnormal soft tissue calcif ications. IMPRESSION: Dislocation of the left humeral head. No fracture identified.
--- NOTE | 2019-10-06 09:52 | RAD REPORT ---
EXAM DESCRIPTION: RAD - Shoulder 1 View - 10/06/2019 9:35 am CLINICAL HISTORY: post reductionleft humeral head dislocated on prior examination COMPARISON: Shoulder Left 2 View dated 10/06/2019 FINDINGS: A single image labeled post reduction shows internal rotation of the left humeral head. Hu meral head has been reduced to normal anatomic position. No fracture identified. IMPRESSION: Left humerus has been successfully reduced back to anatomic position.
--- NOTE | 2019-10-06 09:52 | ER ---
Nurse's Notes [facility] Name: Ben Ceballos Age: 69 yrs Sex: Male : 1950 Arrival Date: 10/06/2019 Time: 07:30 Bed 3 Private MD: Isreal Prajapati R Diagnosis: Other dislocation of left shoulder joint Presentation: 10/05 07:35 Chief complaint: Patient states: L shoulder pain and possible dislocation after falling ss out of a boat this AM. Coronavirus screen: Client denies travel out of the [place] in the last 14 days. Ebola Screen: Patient denies exposure to infectious person. Patient denies travel to an Ebola-affected area in the 21 days before illness onset. Initial Sepsis Screen: Does the patient meet any 2 criteria? No. Patient's initial sepsis screen is negative. Does the patient have a suspected source of infection? No. Patient's initial sepsis screen is negative. Risk Assessment: Do you want to hurt yourself or someone else? Patient reports no desire to harm self or others. Onset of symptoms was October 06, 2019. 07:35 Method Of Arrival: Wheelchair ss 07:35 Acuity: XIN 2 ss Historical: - Allergies: 07:37 No Known Allergies; ss - Immunization history:: Adult Immunizations up to date. - Social history:: Smoking status: Patient denies any tobacco usage or history of. Screenin:45 Abuse screen: Denies threats or abuse. Nutritional screening: No deficits noted. em Tuberculosis screening: No symptoms or risk factors identified. Fall Risk None identified. Assessment: 07:50 General: Appears uncomfortable, Behavior is calm, cooperative. Pain: Complains of pain em in anterior aspect of left shoulder Pain currently is 10 out of 10 on a pain scale. Noted to be guarding, moaning, resistant to movement. Neuro: Level of Consciousness is awake, alert, obeys commands, Oriented to person, place, time, situation, Appropriate for age. Cardiovascular: Capillary refill < 3 seconds Patient's skin is warm and dry. Respiratory: Airway is patent Respiratory effort is even, unlabored, Respiratory pattern is regular, symmetrical. Derm: Skin is intact, is healthy with good turgor, Skin is pink, warm \\T\\ dry. Musculoskeletal: Capillary refill < 3 seconds, Range of motion: limited in left shoulder. 08:35 Reassessment: Patient appears in no apparent distress at this time. Patient and/or hb family updated on plan of care and expected duration. Pain level reassessed. Patient is alert, oriented x 3, equal unlabored respirations, skin warm/dry/pink. Awaiting reduction at this time. pulses distal to injury 3+. 08:45 Reassessment: Dr. Mayorga and Mike JORDAN at bedside for left shoulder reduction. See conscious sedation flowsheet. 09:25 Reassessment: Shoulder reduction complete, pt remains sedated. VSS. hb 09:43 Reassessment: Pt alert, tolerating water, on phone with family. VSS. Awaiting radiology hb results at this time. Vital Signs: 07:35 BP 183 / 94; Pulse 86; Resp 18; Temp 97.6(TE); Pulse Ox 98% on R/A; Weight 83.91 kg; ss Height 5 ft. 7 in. (170.18 cm); Pain 10/10; 08:52 BP 136 / 86; Pulse 82; Resp 22; Pulse Ox 98% ; sv 09:30 BP 159 / 95; Pulse 78; Resp 18; Pulse Ox 100% on 3 lpm NC; hb 09:58 BP 161 / 98; Pulse 73; Resp 16; Pulse Ox 100% ; hb 10:17 BP 138 / 80; Pulse 70; Resp 16; Pulse Ox 100% on R/A; hb 07:35 Body Mass Index 28.97 (83.91 kg, 170.18 cm) ED Course: 07:30 Patient arrived in ED. mr 07:31 Isreal Prajapati MD is Private Physician. mr 07:35 Mike Blanchard PA is PHCP. cp 07:36 Inga Mayorga MD is Attending Physician. cp 07:36 Triage completed. ss 07:37 Arm band placed on right wrist. ss 07:41 Sheldon Black, RN is Primary Nurse. em 07:50 Patient has correct armband on for positive identification. Bed in low position. Call em light in reach. 07:55 Inserted saline lock: 20 gauge in right antecubital area, using aseptic technique. em 08:06 XRAY Shoulder LEFT 2 view In Process Unspecified. EDMS 08:36 Consent for conscious sedation explained by physician, signed by patient. hb 09:30 Assist provider with reduction of left shoulder using manipulation, Set up for hb procedure. Performed by Inga Mayorga MD Immobilized with shoulder immobilizer Patient tolerated well. 09:34 Shoulder 1 View In Process Unspecified. EDMS 09:51 Micah Wolfe MD is Referral Physician. cp Administered Medications: 07:55 Drug: Zofran (Ondansetron) 4 mg Route: IVP; Site: right antecubital; em 08:45 Follow up: Response: No adverse reaction hb 07:57 Drug: morphine 4 mg Route: IVP; Site: right antecubital; em 08:45 Follow up: Response: No adverse reaction hb 07:58 Not Given (Patient Refused; "a shot for pain"): Hydrocodone-Acetaminophen (7.5 mg-325 em mg) 1 tabs PO once; RASS on ADMIN: Combtv4, Very Agttd3, Agttd2, Rstlss1, AlertClm0, Drwsy-1, Lt Sdtn-2, Mod Sdtn-3, Dp Sdtn-4, UnArsble-5 08:35 CANCELLED (Physician Discretion): Ketamine 1 mg/kg IVP once cp 08:48 Drug: Propofol 40 mg {Note: administered by Mike PA.} Route: IVP; Site: right hb antecubital; 09:53 Follow up: Response: No adverse reaction hb 09:01 Drug: Propofol 20 mg {Note: administered by Mike PA.} Route: IVP; Site: right hb antecubital; 09:04 Drug: Propofol 20 mg {Note: administered by Mike PA.} Route: IVP; Site: right hb antecubital; 09:53 Follow up: Response: No adverse reaction hb 09:06 Drug: Propofol 20 mg {Note: administered by Mike PA.} Route: IVP; Site: right hb antecubital; 09:08 Drug: Propofol 20 mg {Note: administered by Mike PA.} Route: IVP; Site: right hb antecubital; 09:53 Follow up: Response: No adverse reaction hb 09:12 Drug: Propofol 20 mg {Note: administered by Mike PA.} Route: IVP; Site: right hb antecubital; 09:53 Follow up: Response: No adverse reaction hb 09:14 Drug: Ketamine 50 mg Route: IVP; Site: right antecubital; hb 09:52 Follow up: Response: No adverse reaction hb 09:44 Drug: NS 0.9% 1000 ml Route: IV; Rate: TKO; Site: right antecubital; hb 09:46 Not Given (dose correction): Propofol 1 mg/kg IVP once hb Outcome: 09:52 Discharge ordered by MD. vernon 11:02 Patient left the ED. hb Signatures: Dispatcher [employer] Becka Warren RN RN sv Rivera, Mary mr Munoz, Edgar, RN RN em Smirch, Shelby, RN RN ss Page, Corey, PA PA Makenna Randolph RN RN hb
--- NOTE | 2019-10-06 09:52 | EDPHYS ---
Physician Documentation [facility] Name: Ben Ceballos Age: 69 yrs Sex: Male : 1950 Arrival Date: 10/06/2019 Time: 07:30 Bed 3 Private MD: Isreal Prajapati R ED Physician Inga Mayorga HPI: 10/05 07:45 This 69 yrs old Male presents to ER via Wheelchair with complaints of Fall cp Injury, Arm Injury. 07:45 Details of fall: The patient fell from an upright position, while walking. cp 07:45 Onset: The symptoms/episode began/occurred just prior to arrival. Associated injuries: cp The patient sustained left shoulder. 07:45 Patient reports while getting off boat, slipped and fell landing on left shoulder. cp Patient concerned he dislocated left shoulder. Denies previous history of injury or dislocating left shoulder. Historical: - Allergies: 07:37 No Known Allergies; ss - Immunization history:: Adult Immunizations up to date. - Social history:: Smoking status: Patient denies any tobacco usage or history of. ROS: 07:50 Constitutional: Negative for chills, fever. cp 07:50 Neck: Negative for pain with movement, pain at rest, stiffness. cp 07:50 Cardiovascular: Negative for chest pain, palpitations. 07:50 Respiratory: Negative for cough, shortness of breath, wheezing. 07:50 Abdomen/GI: Negative for abdominal pain, nausea, vomiting, and diarrhea. 07:50 Back: Negative for pain at rest, pain with movement. 07:50 MS/extremity: Positive for abrasion, decreased range of motion, pain, tenderness, of the left shoulder, Negative for paresthesias. 07:50 Neuro: Negative for altered mental status, headache, loss of consciousness, syncope, weakness. 07:50 All other systems are negative. Exam: 08:00 Head/Face: Normocephalic, atraumatic. cp 08:00 Constitutional: The patient appears in no acute distress, alert, awake, non-diaphoretic, non-toxic, well developed, well nourished, in obvious pain, uncomfortable. 08:00 Eyes: Periorbital structures: appear normal, Conjunctiva: normal, no exudate, no injection, Lids and lashes: appear normal, bilaterally. 08:00 ENT: External ear(s): are unremarkable, Nose: is normal, Mouth: Lips: moist, Oral mucosa: moist, Posterior pharynx: Airway: no evidence of obstruction, patent. 08:00 Chest/axilla: Inspection: normal, Palpation: is normal, no crepitus, no tenderness. 08:00 Cardiovascular: Rate: normal, Rhythm: regular. 08:00 Respiratory: the patient does not display signs of respiratory distress, Respirations: normal, no use of accessory muscles, no retractions, labored breathing, is not present, Breath sounds: are clear throughout, no decreased breath sounds. 08:00 Abdomen/GI: Inspection: abdomen appears normal, Palpation: abdomen is soft and non-tender, in all quadrants. 08:00 Back: vertebral tenderness, is not appreciated. 08:00 Musculoskeletal/extremity: Pulses: noted to be 2+ in the right radial artery and left radial artery, Sensation intact. Joints: All joints are normal except the left shoulder displays deformity, limited range of motion, painful range of motion, tenderness. 08:00 Neuro: Orientation: to person, place \\T\\ time. Mentation: is normal. 10/06 08:00 Neck: C-spine: vertebral tenderness, is not appreciated, crepitus, is not appreciated, cp ROM/movement: is normal, is supple, without pain, no range of motions limitations. Vital Signs: 10/05 07:35 BP 183 / 94; Pulse 86; Resp 18; Temp 97.6(TE); Pulse Ox 98% on R/A; Weight 83.91 kg; ss Height 5 ft. 7 in. (170.18 cm); Pain 10/10; 08:52 BP 136 / 86; Pulse 82; Resp 22; Pulse Ox 98% ; sv 09:30 BP 159 / 95; Pulse 78; Resp 18; Pulse Ox 100% on 3 lpm NC; hb 09:58 BP 161 / 98; Pulse 73; Resp 16; Pulse Ox 100% ; hb 10:17 BP 138 / 80; Pulse 70; Resp 16; Pulse Ox 100% on R/A; hb 07:35 Body Mass Index 28.97 (83.91 kg, 170.18 cm) ss Procedures: 09:35 Reduction: of the left shoulder, using manipulation, supination, Immobilized with shoulder immobilizer. Patient tolerated well. Post reduction film - reveals normal alignment. Moderate sedation: Pre-procedure assessment: Airway assessment: able to hyperextend neck, able to maintain airway, can open mouth without difficulty, Monitoring during procedure: child monitor, continuous pulse oximetry, nurse at bedside at all times, Medications employed: Ketamine, 50 mg(s), 120 mg IV propofol given, Post-procedure assessment: the patient is moderately sedated, Respiratory status: even and unlabored. MDM: 07:39 Patient medically screened. cp 08:30 Differential diagnosis: closed head injury, contusion, fracture, shoulder dislocation. cp 09:51 Data reviewed: vital signs, nurses notes, radiologic studies, plain films, I have cp discussed the patient's presentation/case with the attending Emergency Department Physician; and as a result, I will discharge patient. 09:51 Counseling: I had a detailed discussion with the patient and/or guardian regarding: the cp historical points, exam findings, and any diagnostic results supporting the discharge/admit diagnosis, radiology results, the need for outpatient follow up, a orthopedic surgeon, to return to the emergency department if symptoms worsen or persist or if there are any questions or concerns that arise at home. Response to treatment: the patient's symptoms have markedly improved after treatment, and as a result, I will discharge patient. 10/05 07:40 Order name: XRAY Shoulder LEFT 2 view; Complete Time: 09:54 cp 10/05 09:55 Interpretation: Report reviewed. cp 10/05 09:33 Order name: Shoulder 1 View; Complete Time: 09:54 EDMS 10/05 09:55 Interpretation: Report reviewed. cp 10/05 08:31 Order name: Oxygen Per Protocol; Complete Time: 08:37 cp 10/05 08:33 Order name: Shoulder Immobilizer; Complete Time: 09:52 cp Administered Medications: 07:55 Drug: Zofran (Ondansetron) 4 mg Route: IVP; Site: right antecubital; em 08:45 Follow up: Response: No adverse reaction hb 07:57 Drug: morphine 4 mg Route: IVP; Site: right antecubital; em 08:45 Follow up: Response: No adverse reaction hb 07:58 Not Given (Patient Refused; "a shot for pain"): Hydrocodone-Acetaminophen (7.5 mg-325 em mg) 1 tabs PO once; RASS on ADMIN: Combtv4, Very Agttd3, Agttd2, Rstlss1, AlertClm0, Drwsy-1, Lt Sdtn-2, Mod Sdtn-3, Dp Sdtn-4, UnArsble-5 08:35 CANCELLED (Physician Discretion): Ketamine 1 mg/kg IVP once cp 08:48 Drug: Propofol 40 mg {Note: administered by Mike PA.} Route: IVP; Site: right hb antecubital; 09:53 Follow up: Response: No adverse reaction hb 09:01 Drug: Propofol 20 mg {Note: administered by Mike PA.} Route: IVP; Site: right hb antecubital; 09:04 Drug: Propofol 20 mg {Note: administered by Mike PA.} Route: IVP; Site: right hb antecubital; 09:53 Follow up: Response: No adverse reaction hb 09:06 Drug: Propofol 20 mg {Note: administered by Mike PA.} Route: IVP; Site: right hb antecubital; 09:08 Drug: Propofol 20 mg {Note: administered by Mike PA.} Route: IVP; Site: right hb antecubital; 09:53 Follow up: Response: No adverse reaction hb 09:12 Drug: Propofol 20 mg {Note: administered by Mike PA.} Route: IVP; Site: right hb antecubital; 09:53 Follow up: Response: No adverse reaction hb 09:14 Drug: Ketamine 50 mg Route: IVP; Site: right antecubital; hb 09:52 Follow up: Response: No adverse reaction hb 09:44 Drug: NS 0.9% 1000 ml Route: IV; Rate: TKO; Site: right antecubital; hb 09:46 Not Given (dose correction): Propofol 1 mg/kg IVP once hb Disposition: 10:00 Chart complete. cp 13:30 Co-signature as Attending Physician, Inga Mayorga MD. ma2 Disposition: 10/06/19 09:52 Discharged to Home. Impression: Other dislocation of left shoulder joint. - Condition is Stable. - Discharge Instructions: Shoulder Dislocation, How to Use a Shoulder Immobilizer, Shoulder Range of Motion Exercises. - Prescriptions for Tylenol- Codeine #3 300-30 mg Oral Tablet - take 2 tablets by ORAL route every 8 hours As needed; 20 tablet. Diclofenac Sodium 75 mg Oral Tablet, Delayed Release (E.C.) - take 1 tablet by ORAL route 2 times per day; 20 tablet. Zofran 4 mg Oral Tablet - take 1 tablet by ORAL route every 12 hours As needed; 20 tablet. - Medication Reconciliation Form, Thank You Letter, Antibiotic Education, Prescription Opioid Use form. - Follow up: Micah Wolfe MD; When: 1 week; Reason: Recheck today's complaints. - Problem is new. - Symptoms have improved. Signatures: Dispatcher [employer] EDMS Sheldon Black RN RN em Smirch, Shelby, RN RN ss Mike Blanchard PA PA cp Baxter, Heather, RN RN Inga Mayorga MD MD ma2 Corrections: (The following items were deleted from the chart) 08:35 08:21 Ketamine 1 mg/kg IVP once ordered. cp cp 09:33 09:17 Shoulder Left 2 View+RAD.RAD.BRZ ordered. EDMS EDMS 09:34 09:17 Humerus Left+RAD.RAD.BRZ ordered. EDDC EDMS 11:02 09:52 10/06/2019 09:52 Discharged to Home. Impression: Other dislocation of left hb shoulder joint. Condition is Stable. Forms are Medication Reconciliation Form, Thank You Letter, Antibiotic Education, Prescription Opioid Use. Follow up: Micah Wolfe; When: 1 week; Reason: Recheck today's complaints. Problem is new. Symptoms have improved. cp 10/06 09:24 08:00 Constitutional: The patient appears in no acute distress, alert, awake, cp non-diaphoretic, non-toxic, well developed, well nourished, in obvious pain, uncomfortable, cp : 08:00 Head/Face: Normocephalic, atraumatic. cp cp 09: 08:00 Eyes: Periorbital structures: appear normal, Conjunctiva: normal, no exudate, no cp injection, Lids and lashes: appear normal, bilaterally, cp 09: 08:00 ENT: External ear(s): are unremarkable, Nose: is normal, Mouth: Lips: moist, Oral cp mucosa: moist, Posterior pharynx: Airway: no evidence of obstruction, patent, cp : 08:00 Neck: C-spine: vertebral tenderness, is not appreciated, crepitus, is not cp appreciated, ROM/movement: is normal, is supple, without pain, no range of motions limitations, cp : 08:00 Chest/axilla: Inspection: normal, Palpation: is normal, no crepitus, no cp tenderness, cp : 08:00 Cardiovascular: Rate: normal, Rhythm: regular, cp cp :30 09:00 Respiratory: the patient does not display signs of respiratory distress, cp Respirations: normal, no use of accessory muscles, no retractions, labored breathing, is not present, Breath sounds: are clear throughout, no decreased breath sounds, cp :30 09:00 Abdomen/GI: Inspection: abdomen appears normal, Palpation: abdomen is soft and cp non-tender, in all quadrants, cp :30 09:00 Back: vertebral tenderness, is not appreciated, cp cp :30 09:00 Musculoskeletal/extremity: Pulses: noted to be 2+ in the right radial artery and cp left radial artery, Sensation intact. Joints: All joints are normal except the left shoulder displays deformity, limited range of motion, painful range of motion, tenderness, cp :00 Neuro: Orientation: to person, place \\T\\ time. Mentation: is normal, cp cp
[2019-10-09 22:51] VITALS: TEMP 97.6
[2019-10-09 22:54] VITALS: O2SAT 100
[2019-10-09 22:56] VITALS: BP 138/80
== END 2019-10-06 11:02 | disposition home or self-care (01) ==
LOC: ER 07:30
PROC: 0RSKXZZ Reposition Left Shoulder Joint, External Approach (ICD-10-PCS; principal; 2019-10-06)
DX: S43.085A Other dislocation of left shoulder joint, initial encounter (principal); W01.198A Fall on same level from slipping, tripping and stumbling with subsequent striking against other object, initial encounter; Y93.89 Activity, other specified; Y92.89 Other specified places as the place of occurrence of the external cause
CPT/HCPCS: 73020; 73030; 96375; 96374; 99285; 23655; J2704; J7030; J2405

== ENCOUNTER 2020-03-19 11:17 | Emergency (ER) | payer OTHER ==
[2020-03-19 12:39] LABS: Absolute Lymphocytes (CBC) 1.1 K/uL (0.7-4.9); Basophils % 0.4 % (0-1.3); Hematocrit 39.2 % (39.6-49.0); Lymphocytes % 14.2 % (15.3-44.8); MPV 8.1 fL (7.6-11.3); RBC Red Blood Cell Count 4.28 M/uL (4.33-5.43)
[2020-03-19] MEDS ORDERED: NA CHLORIDE 0.9% 500 ML ONE (12:42)
[2020-03-19 12:48] LABS: Albumin 3.7 g/dL (3.4-5.0); Bilirubin Direct 0.1 mg/dL (0-0.2); Bilirubin Total 0.4 mg/dL (0.2-1.0); Potassium 3.6 mmol/L (3.5-5.1); Protein, Total 7.6 g/dL (6.4-8.2)
--- NOTE | 2020-03-19 13:38 | RAD REPORT ---
EXAM DESCRIPTION: CT - Abdomen Pelvis W Contrast - 03/19/2020 1:12 pm CLINICAL HISTORY: Abdominal pain COMPARISON: 2018 TECHNIQUE: Computed axial tomography of the abdomen pelvis was obtained. 100 cc Isovue-300 was admin istered intravenously. Oral contrast was not requested which limits evaluation of bowel. All CT scans are performed using dose optimization technique as appropriate and may include automated exposure control or mA/KV adjustment according to patient size. FINDINGS: Mild fatty liver The spleen, pancreas and adrenals appear unremarkable. Small renal cysts There appears to be soft tissue within the sigmoid colon. It measures approximately 4.5 centimeters. The remainder of the colon is dilated. The cecum is the most dilated measuring 9.5 centimeters. Prostatectomy. Small inguinal hernias IMPRESSION: Probable sigmoid colon mass resulting in a colonic obstruction. The cecum measures 9.5 c entimeters
--- NOTE | 2020-03-19 15:37 | ER ---
Nurse's Notes [facility] Name: Ben Ceballos Age: 69 yrs Sex: Male : 1950 Arrival Date: 03/19/2020 Time: 11:19 Bed 2 Private MD: Diagnosis: Abdominal and pelvic pain;Partial Bowel Obstruction Presentation: 03/19 11:41 Chief complaint: Patient states: abd distention, has hx of gall bladder issues, tries iw to eat and he feels so bloated, symptoms X 5 days, was sen by Dr. Cleaning and given medication but it's not helping. Coronavirus screen: At this time, the client does not indicate any symptoms associated with coronavirus-19. Ebola Screen: Patient negative for fever greater than or equal to 101.5 degrees Fahrenheit, and additional compatible Ebola Virus Disease symptoms Patient denies exposure to infectious person. Patient denies travel to an Ebola-affected area in the 21 days before illness onset. No symptoms or risks identified at this time. Initial Sepsis Screen: Does the patient meet any 2 criteria? No. Patient's initial sepsis screen is negative. Does the patient have a suspected source of infection? No. Patient's initial sepsis screen is negative. Risk Assessment: Do you want to hurt yourself or someone else? Patient reports no desire to harm self or others. Onset of symptoms was March 14, 2020. 11:41 Method Of Arrival: Ambulatory iw 11:41 Acuity: XIN 3 iw Historical: - Allergies: 11:44 No Known Allergies; iw - Home Meds: 11:44 Omeprazole Oral once daily [Active]; lisinopril 10 mg Oral tab once daily [Active]; iw - PMHx: 11:44 Hypertension; prostate cancer; iw - PSHx: 11:44 prostate removed; colostomy and reversal; iw - Immunization history:: Adult Immunizations up to date. - Social history:: Smoking status: Patient/guardian denies using tobacco, but has a distant history of tobacco abuse. Screenin:30 Abuse screen: Denies threats or abuse. Nutritional screening: No deficits noted. aa5 Tuberculosis screening: No symptoms or risk factors identified. Fall Risk None identified. Assessment: 12:00 General: Appears comfortable, Behavior is calm, cooperative. Pain: Denies pain. Neuro: aa5 Level of Consciousness is awake, alert, obeys commands, Oriented to person, place, time, situation. Cardiovascular: Patient's skin is warm and dry. Respiratory: Airway is patent Respiratory effort is even, unlabored, Respiratory pattern is regular, symmetrical. GI: Abdomen is round Bowel sounds present X 4 quads. Abdomen is tender to palpation X 4 quads. Reports bloating, Patient currently denies diarrhea, nausea, tolerance of food. : No signs and/or symptoms were reported regarding the genitourinary system. EENT: No signs and/or symptoms were reported regarding the EENT system. Derm: Skin is pink, warm \T\ dry. Musculoskeletal: Range of motion: intact in all extremities. 13:05 Reassessment: Pt to CT via wheelchair . aa5 14:10 Reassessment: Patient is alert, oriented x 3, equal unlabored respirations, skin aa5 warm/dry/pink. Dr. Augustin at bedside discussing CT and lab results with pt. . 15:05 Reassessment: Patient is alert, oriented x 3, equal unlabored respirations, skin aa5 warm/dry/pink. Dr. Ashley (general surgeon) at bedside speaking to pt. . 15:50 Reassessment: Patient is alert, oriented x 3, equal unlabored respirations, skin aa5 warm/dry/pink. Vital Signs: 11:41 BP 153 / 80; Pulse 70; Resp 16; Temp 98.4; Pulse Ox 97% on R/A; iw 15:00 BP 150 / 82; Pulse 72; Resp 18 S; Pulse Ox 99% on R/A; aa5 ED Course: 11:19 Patient arrived in ED. ag5 11:25 Kenyon Augustin MD is Attending Physician. kdr 11:43 Triage completed. iw 11:45 Arm band placed on. iw 11:46 Kala Boss, RADHA is Primary Nurse. aa5 12:18 Missed attempt(s): 20 gauge in left antecubital area. Bleeding controlled, band aid aa5 applied, catheter tip intact. 12:20 Initial lab(s) drawn, by me, sent to lab. Inserted saline lock: 20 gauge in right aa5 antecubital area, using aseptic technique. Blood collected. 13:12 CT Abd/Pelvis - IV Contrast Only In Process Unspecified. EDMS 15:38 Jasmeet Ashley MD is Referral Physician. kdr 15:50 No provider procedures requiring assistance completed. IV discontinued, intact, aa5 bleeding controlled, No redness/swelling at site. Pressure dressing applied. Administered Medications: 12:30 Drug: NS 0.9% 500 ml Route: IV; Rate: bolus; Site: right antecubital; aa5 13:05 Follow up: IV Status: Completed infusion; IV Intake: 500ml aa5 Intake: 13:05 IV: 500ml; Total: 500ml. aa5 Outcome: 15:37 Discharge ordered by MD. kdr 15:52 Discharged to home ambulatory. aa5 15:52 Condition: stable 15:52 Discharge instructions given to patient, Instructed on discharge instructions, follow up and referral plans. medication usage, Demonstrated understanding of instructions, follow-up care, medications, Prescriptions given X 1. 15:57 Patient left the ED. aa5 Signatures: Dispatcher [employer] EDMS Kenyon Augustin MD MD kdr Maya Mora RN RN iw Kala Boss RN RN aa5 Sparkle Alcantar ag5 Corrections: (The following items were deleted from the chart) 11:45 11:44 Social history: Smoking status: Patient reports the use of cigarette tobacco iw products, smokes two packs cigarettes per day. iw
--- NOTE | 2020-03-19 15:37 | EDPHYS ---
Physician Documentation [facility] Name: Ben Ceballos Age: 69 yrs Sex: Male : 1950 Arrival Date: 03/19/2020 Time: 11:19 Bed 2 Private MD: ED Physician Kenyon Augustin HPI: 03/19 12:07 This 69 yrs old Male presents to ER via Ambulatory with complaints of kdr Abdominal Pain. 12:07 The patient presents with abdominal pain in the right upper quadrant, right lower kdr quadrant, abdominal distention that is diffuse. Onset: The symptoms/episode began/occurred gradually, 2 week(s) ago. The symptoms radiate to the right flank. Associated signs and symptoms: Pertinent positives: nausea, Pertinent negatives: anorexia, blood in stools, chest pain, constipation, diarrhea, dysuria, fever, headache, hematuria, palpitations, shortness of breath, testicular pain, vomiting, vomiting blood. The symptoms are described as achy, crampy, intermittent. Modifying factors: The symptoms are alleviated by nothing, the symptoms are aggravated by drinking, food. Severity of pain: At its worst the pain was moderate in the emergency department the pain has resolved. The patient has experienced similar episodes in the past, multiple times, The patient has had multiple bowel issues/obstruction with prior colostomy. Has been doing well until the last two weeks. The patient has not recently seen a physician. Historical: - Allergies: 11:44 No Known Allergies; iw - Home Meds: 11:44 Omeprazole Oral once daily [Active]; lisinopril 10 mg Oral tab once daily [Active]; iw - PMHx: 11:44 Hypertension; prostate cancer; iw - PSHx: 11:44 prostate removed; colostomy and reversal; iw - Immunization history:: Adult Immunizations up to date. - Social history:: Smoking status: Patient/guardian denies using tobacco, but has a distant history of tobacco abuse. ROS: 12:07 Constitutional: Negative for fever, chills, and weight loss, Eyes: Negative for injury, kdr pain, redness, and discharge, ENT: Negative for injury, pain, and discharge, Neck: Negative for injury, pain, and swelling, Cardiovascular: Negative for chest pain, palpitations, and edema, Respiratory: Negative for shortness of breath, cough, wheezing, and pleuritic chest pain, Back: Negative for injury and pain, : Negative for injury, bleeding, discharge, and swelling, MS/Extremity: Negative for injury and deformity, Skin: Negative for injury, rash, and discoloration, Neuro: Negative for headache, weakness, numbness, tingling, and seizure activity. Psych: Negative for depression, anxiety, suicide ideation, homicidal ideation, and hallucinations, Allergy/Immunology: Negative for hives, rash, and allergies, Endocrine: Negative for neck swelling, polydipsia, polyuria, polyphagia, and marked weight changes, Hematologic/Lymphatic: Negative for swollen nodes, abnormal bleeding, and unusual bruising. 12:07 Abdomen/GI: Positive for abdominal pain, nausea, abdominal cramps, abdominal distension, Negative for vomiting, diarrhea, constipation, anorexia, dysphagia, hematemesis, black/tarry stool, rectal pain, rectal bleeding, bowel incontinence. Exam: 12:07 Constitutional: This is a well developed, well nourished patient who is awake, alert, kdr and in no acute distress. Head/Face: Normocephalic, atraumatic. Eyes: Pupils equal round and reactive to light, extra-ocular motions intact. Lids and lashes normal. Conjunctiva and sclera are non-icteric and not injected. Cornea within normal limits. Periorbital areas with no swelling, redness, or edema. Neck: Trachea midline, no thyromegaly or masses palpated, and no cervical lymphadenopathy. Supple, full range of motion without nuchal rigidity, or vertebral point tenderness. No Meningismus. Chest/axilla: Normal chest wall appearance and motion. Nontender with no deformity. No lesions are appreciated. Cardiovascular: Regular rate and rhythm with a normal S1 and S2. No gallops, murmurs, or rubs. Normal PMI, no JVD. No pulse deficits. Respiratory: Lungs have equal breath sounds bilaterally, clear to auscultation and percussion. No rales, rhonchi or wheezes noted. No increased work of breathing, no retractions or nasal flaring. Back: No spinal tenderness. No costovertebral tenderness. Full range of motion. Skin: Warm, dry with normal turgor. Normal color with no rashes, no lesions, and no evidence of cellulitis. MS/ Extremity: Pulses equal, no cyanosis. Neurovascular intact. Full, normal range of motion. Neuro: Awake and alert, GCS 15, oriented to person, place, time, and situation. Cranial nerves II-XII grossly intact. Motor strength 5/5 in all extremities. Sensory grossly intact. Cerebellar exam normal. Normal gait. Psych: Awake, alert, with orientation to person, place and time. Behavior, mood, and affect are within normal limits. 12:07 Abdomen/GI: Inspection: abdomen appears normal, scar(s), Bowel sounds: active, Palpation: soft, nontender. Vital Signs: 11:41 BP 153 / 80; Pulse 70; Resp 16; Temp 98.4; Pulse Ox 97% on R/A; iw 15:00 BP 150 / 82; Pulse 72; Resp 18 S; Pulse Ox 99% on R/A; aa5 MDM: 12:07 Data reviewed: vital signs, nurses notes, lab test result(s), radiologic studies. kdr Counseling: I had a detailed discussion with the patient and/or guardian regarding: the historical points, exam findings, and any diagnostic results supporting the discharge/admit diagnosis, lab results, radiology results. 14:04 Physician consultation: Jasmeet Ashley MD was called at 14:04, was contacted at 14:04, [facility] regarding admission, consult, patient's condition, need to come to ED to see patient, and will see patient in ED, shortly. 15:37 Patient medically screened. kdr 03/19 12:01 Order name: Basic Metabolic Panel; Complete Time: 13:36 kdr 03/19 12:01 Order name: CBC with Diff; Complete Time: 13:36 kdr 03/19 12:01 Order name: Hepatic Function; Complete Time: 13:36 kdr 03/19 12:01 Order name: Lipase; Complete Time: 13:36 kdr 03/19 12:07 Order name: CT Abd/Pelvis - IV Contrast Only; Complete Time: 14:00 kdr 03/19 12:01 Order name: IV Saline Lock; Complete Time: 12:32 kdr 03/19 12:01 Order name: Labs collected and sent; Complete Time: 12:32 kdr Administered Medications: 12:30 Drug: NS 0.9% 500 ml Route: IV; Rate: bolus; Site: right antecubital; aa5 13:05 Follow up: IV Status: Completed infusion; IV Intake: 500ml aa5 Disposition: 03/19/20 15:37 Discharged to Home. Impression: Abdominal and pelvic pain, Partial Bowel Obstruction. - Condition is Stable. - Discharge Instructions: Abdominal Pain, Adult, [id number]. - Prescriptions for Zofran 4 mg Oral Tablet - take 1 tablet by ORAL route every 4-6 hours As needed; 12 tablet. - Medication Reconciliation Form, Thank You Letter form. - Follow up: Private Physician; When: 2 - 3 days; Reason: If symptoms return, Further diagnostic work-up, Recheck today's complaints, Continuance of care, Re-evaluation by your physician. Follow up: Jasmeet Ashley MD; When: 2 - 3 days; Reason: If symptoms return, Further diagnostic work-up, Recheck today's complaints, Continuance of care, Re-evaluation by your physician. - Problem is new. - Symptoms have improved. - Notes: Follow the instrcutions given to you by Dr. Ashley regarding diet and eating. Please return as soon as possible if your syptoms become acutely worse incluidng nausea, vomiting and cessation of bowel movements and bowel gas. Signatures: Dispatcher [employer] EDMS Kenyon Augustin MD MD kdr Maya Mora RN RN iw Kala Boss RN RN aa5 Corrections: (The following items were deleted from the chart) 11:45 11:44 Social history: Smoking status: Patient reports the use of cigarette tobacco iw products, smokes two packs cigarettes per day. iw 15:38 15:37 03/19/2020 15:37 Discharged to Home. Impression: Abdominal and pelvic pain; kdr Partial Bowel Obstruction. Condition is Stable. Forms are Medication Reconciliation Form, Thank You Letter, Antibiotic Education, Prescription Opioid Use. Follow up: Private Physician; When: 2 - 3 days; Reason: If symptoms return, Further diagnostic work-up, Recheck today's complaints, Continuance of care, Re-evaluation by your physician. Problem is new. Symptoms have improved. kdr 15:57 15:38 03/19/2020 15:37 Discharged to Home. Impression: Abdominal and pelvic pain; aa5 Partial Bowel Obstruction. Condition is Stable. Discharge Instructions: Abdominal Pain, Adult, [id number]. Prescriptions for Zofran 4 mg Oral Tablet - take 1 tablet by ORAL route every 4-6 hours As needed; 12 tablet. and Forms are Medication Reconciliation Form, Thank You Letter. Follow up: Private Physician; When: 2 - 3 days; Reason: If symptoms return, Further diagnostic work-up, Recheck today's complaints, Continuance of care, Re-evaluation by your physician. Follow up: Jasmeet Ashley; When: 2 - 3 days; Reason: If symptoms return, Further diagnostic work-up, Recheck today's complaints, Continuance of care, Re-evaluation by your physician. Problem is new. Symptoms have improved. kdr
[2020-03-19 16:10] VITALS: BP 153/80; TEMP 98.4; O2SAT 97
--- NOTE | 2020-03-19 16:48 | CON ---
Date of Consultation: 03/19/2020 Brief History Of Present Illness: The patient is a 69-year-old male, previously known to baldomero rios from surgery several years ago. Back in 2016, I encountered the patient at the first time. His me dical history included a history of prostate cancer at which point he had radiation therapy and had r adiation proctitis at that time. He developed a large bowel obstruction and ultimately had perforati on requiring diversion at that time. He had a diverting transverse colostomy created at that time. Ultimately, he had a colonoscopy following that and was deemed appropriate for reconnection after he healed and recovered approximately several months later. He was reconnected at that point and has be en doing well after that. He did have a colonoscopy in 2018, 2 years after the surgery roughly with Dr. Scott, which did not show any malignancy at that time. There was some stricture in the rectosig moid colon area, but biopsies were not remarkable for any malignancy at that time. The patient has h ad several episodes of large bowel obstruction due to stricture near his rectosigmoid colon and he ty pically has episodes of distention, abdominal pain, bloating, nausea, vomiting, and liquid stool. He returns with a similar episode on this particular occasion. He is currently pain free. He has no n ausea, no vomiting, no abdominal pain, no abdominal tenderness. He does feel a slightly bloated. He has continued to have bowel movements. He has 4 bowel movements today alone and continues to pass g as. He states he wants to go home at this point and is afraid of getting COVID in the hospital as th ere are multiple COVID positive patients in the hospital, which he has seen personally he states and he is asking to leave as soon as possible as he is currently asymptomatic and feeling hungry. Past Medical History: As above and prostate cancer. Past Surgical History: Includes prostatectomy, colostomy creation, colostomy reversal, and multiple colonoscopies, last 1 in 2018. Social History: He has a positive tobacco history. Denies alcohol or recreational drug use at this time. Review of Systems: Ten-point review of systems other than HPI, denies. Physical Examination: General: At the time of my examination, he is awake, alert, and oriented. Psychiatric: He is appropriate, conversive. HEENT: Normocephalic. Sclerae anicteric. Mucous membranes are moist. Oropharynx clear. Neck: Supple. No JVD. Chest: Normal expansion and excursion. Cardiovascular: Regular rate and rhythm. Pulmonary: Clear to auscultation bilaterally. Abdomen: Soft, nontender, and nondistended. No rebound. No guarding. No focal peritonitis. He do es have a slightly tympanic gaseous sound to his bowel, but he is completely benign on his physical e xamination. Well-healed surgical scars were evident. Extremities: No clubbing, cyanosis, or edema. Skin: Warm and dry. Laboratory Data: Reveals white blood cell count of 7.7, hemoglobin 13.0, hematocrit 39.2, platelet c ount is 271. Neutrophils are normal at 73%. His sodium is 140, potassium 3.6, chloride 103, carbon dioxide 31, BUN 9, creatinine 1.0, glucose 100, calcium is 9.3, total bilirubin 0.4, direct component 0.1, AST 25, ALT 23, alkaline phosphatase 63, lipase 186. He had a CT scan performed of the abdomen and pelvis, officially read by Dr. Julian Villegas as probable sigmoid colon mass resulting in the co lonic obstruction, cecum measured 9.5 cm, and small inguinal hernias and a prostatectomy. Assessment And Plan: This is a 69-year-old male with known rectosigmoid colon, intermittent inflamma tory strictures and partial obstruction, who currently is asymptomatic. He came to the emergency n[facility] m simply because of a feeling of bloating which was resolved. I found that the patient does not have need for urgent surgical admission at this time and given his no prior COVID exposure, the patient w ants to go home. As such, I have discussed that the patient can go home of his own volition, althoug h I have recommended admission and serial observation for at least 24 hours. The patient has dispute d this and wants to go home at this point and we will attempt a liquid diet, which has been very succ essful before on his multiple episodes in the past, at which point, he had similar complaints. There fore, the patient will be given instructions for low-residue diet. He will be on liquid diet with Ga torade and clear liquids for the next 2 days and then he will transition to Boost or Ensure, the lact ose-free formula for approximately 5 days ensuring that he gets at least 4-5 cans down a day and cont inues to have bowel function, at which point, he will transition to a low-residue diet; however, if christiano rios has any other complaints, he will call 911 immediately and be brought to the hospital at this point . I have explained the risks, benefits, and alternatives of the above-stated plan. The patient will likely need a colonoscopy as an outpatient. I have explained this as well. He is already scheduled with Dr. Cleaning to have a colonoscopy in 2 weeks; however, I recommend he probably push that back slig htly, but I do recommend colonoscopy. The patient agrees to proceed as indicated. Thank you for this interesting consult. CITLALLI/ISIDRO Voice ID: [id number] Report ID: [id number]
== END 2020-03-19 15:57 | disposition home or self-care (01) ==
LOC: ER 11:17
DX: K56.600 Partial intestinal obstruction, unspecified as to cause (principal); Z85.46 Personal history of malignant neoplasm of prostate; Z90.79 Acquired absence of other genital organ(s); I10 Essential (primary) hypertension; Z72.0 Tobacco use
CPT/HCPCS: 85025; 80048; 36415; 80076; 83690; 74177; Q9967; J7040; 96360; 99284

== ENCOUNTER 2020-03-27 15:22 | Emergency (ER) | payer OTHER ==
[2020-03-27] MEDS ORDERED: NA CHLORIDE 0.9% 1,000 ML ONE ×2 (18:07→21:43)
[2020-03-27] MEDS ORDERED: ONDANSETRON 4 MG/2 ML VIAL ONE ×2 (18:07→21:43)
[2020-03-27] MEDS ORDERED: MORPHINE 2 MG/ML SYR ONE ×2 (18:07→19:50)
[2020-03-27] MEDS ORDERED: FAMOTIDINE 20 MG/2 ML VIAL IV ONE (18:08)
[2020-03-27] MEDS ORDERED: METRONIDAZOLE 500mg IVPB 500 MG/100 ML BAG IV ONE (18:08)
[2020-03-27] MEDS ORDERED: CIPROFLOXACIN 400mg IV 400 MG/200 ML BAG IV ONE (18:08)
[2020-03-27 18:34] LABS: Basophils % 0.5 % (0-1.3); Hematocrit 43.1 % (39.6-49.0); Lymphocytes % 9.9 % (15.3-44.8); MPV 8.5 fL (7.6-11.3); RBC Red Blood Cell Count 4.67 M/uL (4.33-5.43)
[2020-03-27 18:48] LABS: Albumin 3.7 g/dL (3.4-5.0); Bilirubin Direct 0.2 mg/dL (0-0.2); Bilirubin Total 0.5 mg/dL (0.2-1.0); Potassium 3.8 mmol/L (3.5-5.1); Protein, Total 7.8 g/dL (6.4-8.2)
--- NOTE | 2020-03-27 20:36 | RAD REPORT ---
EXAM DESCRIPTION: CTAbdomen Pelvis W Contrast - 03/27/2020 8:27 pm CLINICAL HISTORY: Abdominal pain. ABD PAIN COMPARISON: Abdomen Pelvis W Contrast dated 03/19/2020; Abdomen Pelvis W Contrast dated 05/17/2018 ; Abdomen Pelvis W Contrast dated 11/20/2017 TECHNIQUE: Biphasic CT imaging of the abdomen and pelvis was performed with 100 ml non-ionic IV cont rast. All CT scans are performed using dose optimization technique as appropriate and may include automated exposure control or mA/KV adjustment according to patient size. FINDINGS: The lung bases are clear.Small hiatal hernia. The liver, spleen, pancreas, adrenal glands and kidneys are within normal limits. 14 mm benign cyst l eft kidney posteriorly. There is a significant obstruction of the colon present. This is caused by a mass lesion in the regio n of the sigmoid colon measuring about 6 cm in length. No pneumoperitoneum evident. The cecum is dila gloria to 8 cm. No evidence of significant lymphadenopathy. Lumbosacral degenerative changes are present. IMPRESSION: Significant large bowel obstruction is present caused by probable 6 cm sigmoid mass.
--- NOTE | 2020-03-27 21:25 | EDPHYS ---
Physician Documentation [facility] Name: Ben Ceballos Age: 69 yrs Sex: Male : 1950 Arrival Date: 03/27/2020 Time: 15:24 Bed 14 Private MD: ANSLEY Physician Mike Heck HPI: 03/27 17:49 This 69 yrs old Male presents to ER via Ambulatory with complaints of bowel philip blockage. 17:49 The patient presents with abdominal pain abdominal distention in the upper abdomen, in philip the lower abdomen. Onset: The symptoms/episode began/occurred 2 day(s) ago. The symptoms do not radiate. Associated signs and symptoms: Pertinent positives: nausea. Modifying factors: The symptoms are alleviated by nothing, remaining still, the symptoms are aggravated by food. Severity of pain: At its worst the pain was mild moderate. The patient has experienced similar episodes in the past. Historical: - Allergies: 15:38 No Known Allergies; ll1 - PMHx: 15:38 Hypertension; Prostate Cancer; bowel obstruction; ll1 - PSHx: 15:38 prostate removed; colostomy and reversal; ll1 - Immunization history:: Flu vaccine is up to date. - Social history:: Smoking status: Patient denies any tobacco usage or history of. - Family history:: not pertinent. ROS: 17:49 Constitutional: Negative for fever, chills, and weight loss, Eyes: Negative for injury, philip pain, redness, and discharge, ENT: Negative for injury, pain, and discharge, Neck: Negative for injury, pain, and swelling, Cardiovascular: Negative for chest pain, palpitations, and edema, Respiratory: Negative for shortness of breath, cough, wheezing, and pleuritic chest pain, Back: Negative for injury and pain, : Negative for injury, bleeding, discharge, and swelling, MS/Extremity: Negative for injury and deformity, Skin: Negative for injury, rash, and discoloration, Neuro: Negative for headache, weakness, numbness, tingling, and seizure, Psych: Negative for depression, anxiety, suicide ideation, homicidal ideation, and hallucinations, Allergy/Immunology: Negative for hives, rash, and allergies, Endocrine: Negative for neck swelling, polydipsia, polyuria, polyphagia, and marked weight changes, Hematologic/Lymphatic: Negative for swollen nodes, abnormal bleeding, and unusual bruising. 17:49 Abdomen/GI: Positive for abdominal pain, nausea and vomiting, abdominal cramps, abdominal distension, of the right upper quadrant, left upper quadrant, right lower quadrant and left lower quadrant. Exam: 17:49 Constitutional: This is a well developed, well nourished patient who is awake, alert, philip and in no acute distress. Head/Face: Normocephalic, atraumatic. Eyes: Pupils equal round and reactive to light, extra-ocular motions intact. Lids and lashes normal. Conjunctiva and sclera are non-icteric and not injected. Cornea within normal limits. Periorbital areas with no swelling, redness, or edema. ENT: Nares patent. No nasal discharge, no septal abnormalities noted. Tympanic membranes are normal and external auditory canals are clear. Oropharynx with no redness, swelling, or masses, exudates, or evidence of obstruction, uvula midline. Mucous membranes moist. Neck: Trachea midline, no thyromegaly or masses palpated, and no cervical lymphadenopathy. Supple, full range of motion without nuchal rigidity, or vertebral point tenderness. No Meningismus. Chest/axilla: Normal chest wall appearance and motion. Nontender with no deformity. No lesions are appreciated. Cardiovascular: Regular rate and rhythm with a normal S1 and S2. No gallops, murmurs, or rubs. Normal PMI, no JVD. No pulse deficits. Respiratory: Lungs have equal breath sounds bilaterally, clear to auscultation and percussion. No rales, rhonchi or wheezes noted. No increased work of breathing, no retractions or nasal flaring. Back: No spinal tenderness. No costovertebral tenderness. Full range of motion. Male : Normal genitalia with no discharge or lesions. Skin: Warm, dry with normal turgor. Normal color with no rashes, no lesions, and no evidence of cellulitis. MS/ Extremity: Pulses equal, no cyanosis. Neurovascular intact. Full, normal range of motion. Neuro: Awake and alert, GCS 15, oriented to person, place, time, and situation. Cranial nerves II-XII grossly intact. Motor strength 5/5 in all extremities. Sensory grossly intact. Cerebellar exam normal. Normal gait. Psych: Awake, alert, with orientation to person, place and time. Behavior, mood, and affect are within normal limits. 17:49 Abdomen/GI: Inspection: distension, Bowel sounds: diminished, Palpation: mild abdominal tenderness, in all quadrants, Liver: no appreciated palpable abnormalities, Hernia: not appreciated. Vital Signs: 15:35 BP 151 / 95; Pulse 92; Resp 17; Temp 98.0; Pulse Ox 99% ; Weight 74.84 kg; Height 5 ft. ll1 6 in. (167.64 cm); Pain 3/10; 18:15 BP 114 / 70; Pulse 90; Resp 18; Pulse Ox 99% on R/A; tw2 19:00 BP 140 / 93; Pulse 73; Resp 16; Pulse Ox 99% on R/A; jb4 21:30 BP 126 / 91; Pulse 79; Resp 16; Pulse Ox 95% on R/A; jb4 22:30 BP 108 / 58; Pulse 66; Resp 16; Pulse Ox 94% on R/A; jb4 23:35 BP 146 / 81; Pulse 78; Resp 16; Pulse Ox 96% on R/A; jb4 15:35 Body Mass Index 26.63 (74.84 kg, 167.64 cm) ll1 MDM: 17:36 Patient medically screened. philip 17:53 Differential diagnosis: gastritis, non-specific abd pain, pancreatitis, Peptic Ulcer philip Disease, Peritonitis, urinary tract infection. Data reviewed: vital signs, nurses notes, lab test result(s), radiologic studies, CT scan. Data interpreted: awake overnight monitor: rate is 92 beats/min, rhythm is regular, Pulse oximetry: is not applicable for this patient encounter. on room air. Test interpretation: by ED physician or midlevel provider:. Counseling: I had a detailed discussion with the patient and/or guardian regarding: the historical points, exam findings, and any diagnostic results supporting the discharge/admit diagnosis, lab results, radiology results. 21:20 Physician consultation: was contacted at 21:15, regarding regarding transfer, to [facility]. accepting physician will be DR Pool, hospitalist, who will consult GI physician DR Francisco. 03/27 17:48 Order name: Basic Metabolic Panel; Complete Time: 19:10 philip 03/27 17:48 Order name: CBC with Diff; Complete Time: 19:10 philip 03/27 17:48 Order name: Hepatic Function; Complete Time: 19: [facility] 03/27 17:48 Order name: Lipase; Complete Time: 19:10 [facility] 03/27 22:28 Order name: SARS-COV-2 RT PCR EDKS 03/27 17:48 Order name: CT Abd/Pelvis - PO and IV Contrast; Complete Time: 20:41 [facility] 03/27 17:48 Order name: IV Saline Lock; Complete Time: 18:15 [facility] 03/27 17:48 Order name: Labs collected and sent; Complete Time: 18:34 [facility] Administered Medications: 18:05 Drug: Pepcid 20 mg Route: IVP; Site: right antecubital; tw2 18:51 Follow up: Response: No adverse reaction tw2 18:10 Drug: NS 0.9% 1000 ml Route: IV; Rate: 1 bolus; Site: right antecubital; tw2 18:10 Drug: morphine 2 mg {Note: RASS 0.} Route: IVP; Site: right antecubital; tw2 18:12 Drug: Zofran (Ondansetron) 4 mg Route: IVP; Site: right antecubital; tw2 18:34 Follow up: Response: No adverse reaction; Nausea is decreased tw2 18:13 Drug: Flagyl 500 mg Volume: 100 ml; Route: IVPB; Rate: 200 ml/hr; Infused Over: 30 tw2 mins; Site: right antecubital; 18:51 Follow up: Response: No adverse reaction; IV Status: Completed infusion; IV Intake: tw2 100ml 18:51 Drug: Cipro 400 mg Volume: 200 ml; Route: IVPB; Infused Over: 60 mins; Site: right tw2 antecubital; 19:51 Follow up: Response: No adverse reaction; IV Status: Completed infusion; IV Intake: jb4 200ml 19:45 Drug: morphine 2 mg Route: IVP; Site: left antecubital; jb4 22:10 Drug: Zofran (Ondansetron) 4 mg Route: IVP; Site: left antecubital; jb4 22:40 Follow up: Response: No adverse reaction; Marked relief of symptoms jb4 22:10 Drug: NS 0.9% 1000 ml Route: IV; Rate: 100 ml/hr; Site: left antecubital; jb4 03/28 00:30 Follow up: Response: No adverse reaction; IV Status: Infusion continued upon transfer; jb4 IV Intake: 240ml 03/27 22:10 Drug: morphine 4 mg Route: IVP; Site: left antecubital; jb4 23:00 Follow up: Response: No adverse reaction; Marked relief of symptoms; Pain is decreased; jb4 RASS: Alert and Calm (0) Disposition: 03/28 05:39 Co-signature as Attending Physician, Mike Heck MD I agree with the assessment and philip plan of care. Disposition: 03/27/20 21:25 Transfer ordered to [facility]. Diagnosis is Obstruction of Sigmoid Colon. - Reason for transfer: Higher level of care. - Accepting physician is DR Pool. - Condition is Stable. - Problem is an ongoing problem. - Symptoms have improved. Signatures: Dispatcher [employer] [facility] Mike Heck MD MD cha Page, Corey, PA PA cp Yazmin Hale, RN RN tw2 Juventino Newton RN RN jb4 Geoffrey Ferrari RN RN ll1 Corrections: (The following items were deleted from the chart) 03/27 21:43 20:25 CORONAVIRUS+MR.LAB.BRZ ordered. [facility] 03/28 00:39 03/27 21:25 03/27/2020 21:25 Transfer ordered to [facility]. jb4 Diagnosis is Obstruction of Sigmoid Colon. Reason for transfer: Higher level of care. Accepting physician is DR Pool. Condition is Stable. Problem is an ongoing problem. Symptoms have improved. cp
--- NOTE | 2020-03-27 21:25 | ER ---
Nurse's Notes [facility] Name: Ben Ceballos Age: 69 yrs Sex: Male : 1950 Arrival Date: 03/27/2020 Time: 15:24 Bed 14 Private MD: Diagnosis: Obstruction of Sigmoid Colon Presentation: 03/27 15:35 Chief complaint: Patient states: Here last week for a bowel blockage. Gabi sent him ll1 home on a special diet. States his stomach is hurting again, gassy, no appetite. + nausea, no fever. Coronavirus screen: Client denies travel out of the [place] in the last 14 days. At this time, the client does not indicate any symptoms associated with coronavirus-19. Ebola Screen: Patient denies travel to an Ebola-affected area in the 21 days before illness onset. Initial Sepsis Screen: Does the patient meet any 2 criteria? HR > 90 bpm. No. Patient's initial sepsis screen is negative. Does the patient have a suspected source of infection? Yes: Acute abdominal pain. Risk Assessment: Do you want to hurt yourself or someone else? Patient reports no desire to harm self or others. Onset of symptoms was March 19, 2020. 15:35 Method Of Arrival: Ambulatory ll1 15:35 Acuity: XIN 3 ll1 Historical: - Allergies: 15:38 No Known Allergies; ll1 - PMHx: 15:38 Hypertension; Prostate Cancer; bowel obstruction; ll1 - PSHx: 15:38 prostate removed; colostomy and reversal; ll1 - Immunization history:: Flu vaccine is up to date. - Social history:: Smoking status: Patient denies any tobacco usage or history of. - Family history:: not pertinent. Screenin:42 Abuse screen: Denies threats or abuse. Nutritional screening: No deficits noted. tw2 Tuberculosis screening: No symptoms or risk factors identified. Fall Risk None identified. Assessment: 17:33 General: Appears in no apparent distress. slender, well groomed, Behavior is calm, tw2 cooperative, appropriate for age. Pain: Complains of pain in abdomen. Neuro: Level of Consciousness is awake, alert, obeys commands, Oriented to person, place, time, situation. Cardiovascular: Capillary refill < 3 seconds Patient's skin is warm and dry. Respiratory: Airway is patent Respiratory effort is even, unlabored, Respiratory pattern is regular, symmetrical. GI: Reports lower abdominal pain, upper abdominal pain, bloating, epigastric pain, flatulence, gaseousness, nausea. : No signs and/or symptoms were reported regarding the genitourinary system. EENT: No signs and/or symptoms were reported regarding the EENT system. Derm: No signs and/or symptoms reported regarding the dermatologic system. Musculoskeletal: Range of motion: intact in all extremities. 17:42 Reassessment: provider at bedside at this time. tw2 18:16 Reassessment: Patient appears in no apparent distress at this time. No changes from tw2 previously documented assessment. Patient and/or family updated on plan of care and expected duration. Pain level reassessed. Patient is alert, oriented x 3, equal unlabored respirations, skin warm/dry/pink. 18:30 Reassessment: CT notified that pt completed oral contrast at this time, notified tw2 Aaron Barlow. 19:00 Reassessment: Patient appears in no apparent distress at this time. Patient and/or jb4 family updated on plan of care and expected duration. Pain level reassessed. Patient is alert, oriented x 3, equal unlabored respirations, skin warm/dry/pink. 20:00 Reassessment: Patient appears in no apparent distress at this time. Patient and/or jb4 family updated on plan of care and expected duration. Pain level reassessed. Patient is alert, oriented x 3, equal unlabored respirations, skin warm/dry/pink. 21:00 Reassessment: Patient appears in no apparent distress at this time. Patient and/or jb4 family updated on plan of care and expected duration. Pain level reassessed. Patient is alert, oriented x 3, equal unlabored respirations, skin warm/dry/pink. 22:00 Reassessment: Patient appears in no apparent distress at this time. Patient and/or jb4 family updated on plan of care and expected duration. Pain level reassessed. Patient is alert, oriented x 3, equal unlabored respirations, skin warm/dry/pink. 23:00 Reassessment: Patient appears in no apparent distress at this time. Patient and/or jb4 family updated on plan of care and expected duration. Pain level reassessed. Patient is alert, oriented x 3, equal unlabored respirations, skin warm/dry/pink. 03/28 00:00 Reassessment: Patient appears in no apparent distress at this time. Patient and/or jb4 family updated on plan of care and expected duration. Pain level reassessed. Patient is alert, oriented x 3, equal unlabored respirations, skin warm/dry/pink. Vital Signs: 03/27 15:35 BP 151 / 95; Pulse 92; Resp 17; Temp 98.0; Pulse Ox 99% ; Weight 74.84 kg; Height 5 ft. ll1 6 in. (167.64 cm); Pain 3/10; 18:15 BP 114 / 70; Pulse 90; Resp 18; Pulse Ox 99% on R/A; tw2 19:00 BP 140 / 93; Pulse 73; Resp 16; Pulse Ox 99% on R/A; jb4 21:30 BP 126 / 91; Pulse 79; Resp 16; Pulse Ox 95% on R/A; jb4 22:30 BP 108 / 58; Pulse 66; Resp 16; Pulse Ox 94% on R/A; jb4 23:35 BP 146 / 81; Pulse 78; Resp 16; Pulse Ox 96% on R/A; jb4 15:35 Body Mass Index 26.63 (74.84 kg, 167.64 cm) ll1 ED Course: 15:24 Patient arrived in ED. as 15:37 Triage completed. ll1 15:38 Arm band placed on. ll1 17:35 Yazmin Hale, RADHA is Primary Nurse. tw2 17:35 Bed in low position. Call light in reach. Pulse ox on. NIBP on. tw2 17:36 Mike Heck MD is Attending Physician. [facility] 18:00 Inserted saline lock: 20 gauge in right antecubital area, using aseptic technique. tw2 Blood collected. 19:07 Report given to RADHA Moreno. tw2 19:59 Mike Blanchard PA is PHCP. cp 20:27 CT Abd/Pelvis - PO and IV Contrast In Process Unspecified. EDMS 20:42 initiated a transfer with Brandy York from [facility]. mw2 21:24 doc to doc with the Hospitalist from [facility]. mw2 21:33 administrative approval given by Brandy York/ patient has been accepted to [address] 1611/ Dr. Pool has accepted the patient in transfer/ report to be called to [phone]. Need Covid results before transferring. 03/28 00:00 No provider procedures requiring assistance completed. Patient transferred, IV remains jb4 in place. 00:38 Primary Nurse role handed off by Yazmin Hale, RN jb4 00:38 Juventino Newton, RN is Primary Nurse. jb4 Administered Medications: 03/27 18:05 Drug: Pepcid 20 mg Route: IVP; Site: right antecubital; tw2 18:51 Follow up: Response: No adverse reaction tw2 18:10 Drug: NS 0.9% 1000 ml Route: IV; Rate: 1 bolus; Site: right antecubital; tw2 18:10 Drug: morphine 2 mg {Note: RASS 0.} Route: IVP; Site: right antecubital; tw2 18:12 Drug: Zofran (Ondansetron) 4 mg Route: IVP; Site: right antecubital; tw2 18:34 Follow up: Response: No adverse reaction; Nausea is decreased tw2 18:13 Drug: Flagyl 500 mg Volume: 100 ml; Route: IVPB; Rate: 200 ml/hr; Infused Over: 30 tw2 mins; Site: right antecubital; 18:51 Follow up: Response: No adverse reaction; IV Status: Completed infusion; IV Intake: tw2 100ml 18:51 Drug: Cipro 400 mg Volume: 200 ml; Route: IVPB; Infused Over: 60 mins; Site: right tw2 antecubital; 19:51 Follow up: Response: No adverse reaction; IV Status: Completed infusion; IV Intake: jb4 200ml 19:45 Drug: morphine 2 mg Route: IVP; Site: left antecubital; jb4 22:10 Drug: Zofran (Ondansetron) 4 mg Route: IVP; Site: left antecubital; jb4 22:40 Follow up: Response: No adverse reaction; Marked relief of symptoms jb4 22:10 Drug: NS 0.9% 1000 ml Route: IV; Rate: 100 ml/hr; Site: left antecubital; jb4 03/28 00:30 Follow up: Response: No adverse reaction; IV Status: Infusion continued upon transfer; jb4 IV Intake: 240ml 02/18 22:10 Drug: morphine 4 mg Route: IVP; Site: left antecubital; jb4 23:00 Follow up: Response: No adverse reaction; Marked relief of symptoms; Pain is decreased; jb4 RASS: Alert and Calm (0) Intake: 18:51 IV: 100ml; Total: 100ml. tw2 19:51 IV: 200ml; Total: 300ml. jb4 03/28 00:30 IV: 240ml; Total: 540ml. jb4 Outcome: 03/27 21:25 ER care complete, transfer ordered by MD. vernon 03/28 00:30 Transferred by ground EMS [facility] to [facility]. jb4 Condition: stable Discharge instructions given to patient, Instructed on the need for transfer, Demonstrated understanding of instructions. 00:39 Patient left the ED. jb4 Signatures: Dispatcher [employer] EDMike Gallagher MD MD cha Martinez, Amelia as Page, Corey, Yazmin Merritt cp, RN RN tw2 Juventino Newton RN RN jb4 Julianne Nichols 2 Geoffrey Ferrari, RN RN ll1
[2020-03-27] MEDS ORDERED: MORPHINE 4 MG/ML SYR ONE (21:54)
[2020-03-28 01:03] VITALS: TEMP 98
[2020-03-28 01:08] VITALS: BP 146/81; O2SAT 96
== END 2020-03-28 00:39 | disposition short-term general hospital (02) ==
LOC: ER 15:22
DX: K56.699 Other intestinal obstruction unspecified as to partial versus complete obstruction (principal); Z85.46 Personal history of malignant neoplasm of prostate; Z20.822 Contact with and (suspected) exposure to COVID-19
CPT/HCPCS: 85025; 80048; 36415; 80076; 83690; 74177; 99285; U0003; Q9967; J2270 ×2; J7030 ×2; J2405 ×2; J0744

== ENCOUNTER 2020-04-23 07:01 | Day surgery (SDC) | payer OTHER ==
[2020-04-23] MEDS ORDERED: Ringers Lactate 1,000 ML IV ONE (07:39)
[2020-04-23] MEDS ORDERED: LIDOCAINE 1% MPF 30 ML VIAL ONE (08:36)
[2020-04-23] MEDS ORDERED: propofoL 200 MG/20 ML VIAL IV ONE ×4 (08:36→09:49)
--- NOTE | 2020-04-23 09:42 | ENDO RPT ---
[address], [address] EGD PROCEDURE REPORT EXAM DATE: 04/23/2020 PATIENT NAME: Ben Ceballos MR#: [id number] BIRTHDATE: 1950 ATTENDING: Jasmeet Ashley DR STATUS: outpatient [employer] TEST TECHNICIAN: Bernie Pugh RN and Moraima Marie RN INDICATIONS: The patient is a 69 yr old Male here for an EGD due to abdominal pain and GERD PROCEDURE PERFORMED: EGD with biopsy for H. pylori MEDICATIONS: Per Anesthesia. TOPICAL ANESTHETIC: none CONSENT: The patient understands the risks and benefits of the procedure and understands that these risks include, but are not limited to: sedation, allergic reaction, infection, perforation and/or bleeding. Alternative means of evaluation and treatment include, among others: physical exam, x-rays, and/or surgical intervention. The patient elects to proceed with this endoscopic procedure. DESCRIPTION OF PROCEDURE: During intra-op preparation period all mechanical medical equipment was checked for proper function. Hand hygiene and appropriate measures for infection prevention was taken. Procedure, possible complications, and alternatives including but not limited to the possibility of bleeding, perforation, tear, infection, sepsis, need for surgery, need for blood transfusion, and anesthesia related complications were explained to the patient. After the risks, benefits and alternatives of the procedure were thoroughly explained, Informed consent was verified, confirmed and timeout was successfully executed by the treatment team. The patient was placed in the left lateral position. The patient was anesthetized with topical anesthesia. Through the anesthetized oropharyngeal area, the scope was passed without any difficulty. The Pentax EG-[id number] ([id number]) endoscope was introduced through the mouth and advanced to the second portion of the duodenum. Retroflexed views revealed a small hiatal hernia. The gastroscope was then slowly withdrawn and removed. Mild gastritis was found in the body and the antrum of the stomach. Multiple biopsies were obtained and sent to pathology. A biopsy for H. pylori was taken. A small hiatal hernia was found in the gastroesophageal junction. Located 35 cm from the point of entry. A biopsy for H. pylori was taken. ADVERSE EVENTS: There were no complications. IMPRESSIONS: 1. Mild gastritis was found in the body and the antrum of the stomach 2. A small hiatal hernia was found in the gastroesophageal junction RECOMMENDATIONS: 1. await biopsy results 2. anti-reflux regimen 3. acid suppression therapy 4. avoid NSAIDS 5. follow-up of helicobacter pylori status, treat if indicated REPEAT EXAM: Jasmeet Ashley DR eSigned: Jasmeet Ashley DR 04/23/2020 9:41 AM cc: CPT CODES: ICD9 CODES: PATIENT NAME: Ben Ceballos MR#: [id number]
--- NOTE | 2020-04-23 09:49 | ENDO RPT ---
[address], [address] COLONOSCOPY PROCEDURE REPORT EXAM DATE: 04/23/2020 PATIENT NAME: Ben Ceballos MR #: [id number] BIRTHDATE: 1950 ATTENDING: Jasmeet Ashley DR STATUS: outpatient TYPEWRITER RIBBON WINDER: Bernie Pugh RN and Moraima Marie RN INDICATIONS: The patient is a 69 yr old Male here for a colonoscopy due to Colonic Obstruction - history of prostate radiation, radiation proctitis PROCEDURE PERFORMED: Colonoscopy with biopsy - cold polypectomy MEDICATIONS: Per Anesthesia. ESTIMATED BLOOD LOSS: None CONSENT: The patient understands the risks and benefits of the procedure and understands that these risks include, but are not limited to: sedation, allergic reaction, infection, perforation and/or bleeding. Alternative means of evaluation and treatment include, among others: physical exam, x-rays, and/or surgical intervention. The patient elects to proceed with this endoscopic procedure. DESCRIPTION OF PROCEDURE: During intra-op preparation period all mechanical medical equipment was checked for proper function. Hand hygiene and appropriate measures for infection prevention was taken. Procedure, possible complications, alternatives including, but not limited to possibility of bleeding, perforation, tear, infection, sepsis, need for surgery, need for blood transfusion, were explained to the patient. After the risks, benefits and alternatives of the procedure were thoroughly explained, Informed consent was verified, confirmed and timeout was successfully executed by the treatment team. The patient was placed in the left lateral position. A digital rectal exam was performed and revealed internal hemorrhoids. After appropriate level of anesthesia, the scope was passed. The EG-[id number] ([id number]) and EC-[id number] ([id number]) endoscope was introduced through the anus and advanced to the ascending colon. The quality of the prep was inadequate. The instrument was then slowly withdrawn as the colon was fully examined. Scope withdrawal time was 45 minutes. COLON FINDINGS: A few medium sized polypoid shaped and smooth semi-pedunculated polyps were found in the rectosigmoid colon. A biopsy was performed using a hot snare. There was a short fibrotic stricture in the sigmoid colon @ 28cm, there was some hypertrophic tissue present, multiple biopsies were performed using cold forceps. The sigmoid colon has some tortuosity, but traversable with minimal resistance. Additionally there were small polyps - hypetropic tissue appearance and one adenomatous appearance which were noted @ 20 cm. Sample sent for histology. The colonoscopy could NOT be completed due to inadequate prep, there was a combination of solid and luqid stool preventing complete colonoscopy. Small internal hemorrhoids were found. Retroflexed views revealed no abnormalities. The scope was then completely withdrawn from the patient and the procedure terminated. ADVERSE EVENTS: There were no complications. IMPRESSIONS: 1. Few medium sized semi-pedunculated polyps were found in the rectosigmoid colon; biopsy was performed using a hot snare 2. There was a short stricture in the sigmoid colon; multiple biopsies were performed 3. Small internal hemorrhoids RECOMMENDATIONS: 1. avoid NSAIDS for 2 weeks 2. await biopsy results 3. Monitor for any evidence of rectal bleeding. 4. See EGD report. 5. hemorrhoidal hygiene 6. increase dietary water 7. low fiber / diverticular diet RECALL: Return in 1 week(s) for Colonoscopy. Will need 2-3 day prep Jasmeet Ashley DR eSigned: Jasmeet Ashley DR 04/23/2020 9:48 AM cc: CPT CODES: ICD9 CODES: PATIENT NAME: Ben Ceballos MR#: [id number]
[2020-04-23 10:46] VITALS: TEMP 97.6
[2020-04-23 10:48] VITALS: BP 100/64; O2SAT 96
== END 2020-04-23 10:40 | disposition home or self-care (01) ==
LOC: OR 07:01
PROVIDERS: ATTEND Surgery
PROC: 0DB98ZX Excision of Duodenum, Via Natural or Artificial Opening Endoscopic, Diagnostic (ICD-10-PCS; 2020-04-23)
PROC: 0DB78ZX Excision of Stomach, Pylorus, Via Natural or Artificial Opening Endoscopic, Diagnostic (ICD-10-PCS; 2020-04-23)
PROC: 0DB48ZX Excision of Esophagogastric Junction, Via Natural or Artificial Opening Endoscopic, Diagnostic (ICD-10-PCS; 2020-04-23)
PROC: 0DBN8ZX Excision of Sigmoid Colon, Via Natural or Artificial Opening Endoscopic, Diagnostic (ICD-10-PCS; principal; 2020-04-23 08:00)
PROC: 0D568ZZ Destruction of Stomach, Via Natural or Artificial Opening Endoscopic (ICD-10-PCS; 2020-04-23 08:00)
DX: D12.5 Benign neoplasm of sigmoid colon (principal); K62.7 Radiation proctitis; K29.80 Duodenitis without bleeding; K64.8 Other hemorrhoids; K44.9 Diaphragmatic hernia without obstruction or gangrene; K21.9 Gastro-esophageal reflux disease without esophagitis; K29.50 Unspecified chronic gastritis without bleeding; K31.7 Polyp of stomach and duodenum; K21.00 Gastro-esophageal reflux disease with esophagitis, without bleeding; Z20.822 Contact with and (suspected) exposure to COVID-19; Z85.46 Personal history of malignant neoplasm of prostate
CPT/HCPCS: 45384; 43270; 43239; 88312; 88305; U0002; J2704 ×3; J7120